=== PATIENT | female | born 1995 | race Caucasian/White ===

== ENCOUNTER 2020-05-12 17:04 | Outpatient (REF) | payer MEDICAID, SELFPAY | END 2020-05-12 17:05 | disposition home or self-care (01) | LOC: HO.LAB 17:04 | PROVIDERS: Visit Provider Internal Medicine | DX: Z20.828 Contact with and (suspected) exposure to other viral communicable diseases (principal) | CPT/HCPCS: C9803; U0003 ==

== ENCOUNTER 2020-09-18 21:09 | Emergency (ER) | payer MEDICAID, SELFPAY ==
[2020-09-18 21:34] VITALS: BP 117/83; PULSE 76; RESP 16; TEMP 37; O2SAT 98; BMI 37.4
[2020-09-18] MEDS: Fluorescein Sodium STRIP 1 STRIP EYE-RIGHT (22:13)
[2020-09-18] MEDS: Tetracaine HCl/PF 0.5% Oph Sol 4 ML DROPS 3 DROP EYE-RIGHT (22:13)
--- NOTE | 2020-09-18 22:15 | PC.NURSE ---
PT HER FOR REDNESS AND SWELLING RIGHT EYE. PT ALSO HAS ALLERGY SYMPTOMS X 1 MONTH. TAKING OTC MEDS. VISUAL ACUITY DONE. WAITING FOR PROVIDER TO STAIN AND EXAMINE RIGHT EYE.
--- NOTE | 2020-09-18 22:30 | ED_ITS ---
HPI - General Adult General Chief complaint: General Medical Stated complaint: allergies Time Seen by Provider: 09/18/20 21:59 Source: patient Mode of arrival: ambulatory History of Present Illness HPI narrative: 25-year-old female with no significant past medical history presenting to the ED complaining of right eye irritation, pruritus, erythema, and clear drainage times today. Also reports nasal congestion. Has been taking Zyrtec, Claritin, and OTC eyedrops without relief. Reports blurry vision secondary to watery eyes. Denies visual loss, nausea/vomiting, fever, foreign body, eye trauma, headache Onset (ago): hour(s) Related Data Previous Rx's Medication Instructions Recorded olopatadine 1 drp OPHTHALMIC (EYE) BID 7 Days 09/18/20 #5 ml Allergies Allergy/AdvReac Type Severity Reaction Status Date / Time No Known Allergies Allergy Verified 09/18/20 21:33 [No Known Allergies*] seasonal Allergy Unknown Itchy Eyes Uncoded 09/18/20 21:33 Review of Systems Review of Systems: Constitutional: No Fever, No Chills ENT/Mouth: No Ear Pain, No Nasal Congestion, No Sinus Pain, No sore throat, No Swallowing Difficulty Eyes: +Eye Pain, + Swelling, + Redness, No Foreign Body, + Discharge, + Vision Changes Cardiovascular: No Chest Pain, No SOB Respiratory: No Cough, No Dyspnea Gastrointestinal: No Nausea, No Vomiting, No Abdominal pain Musculoskeletal: No joint pain, No Myalgias Skin: No Skin Lesions, No rash Neuro: No Weakness, No Numbness, No Headache Yes all other systems are reviewed and are negative [facility] Past Medical History Attestation statement: The following information was validated with the patient. Medical History (Updated 09/18/20 @ 22:38 by WILLIS Magana) No known health problems Social History Social History Advance Directives: No Advance Directives Information Provided: Yes Physical Exam Vital Signs: Vital Signs: Last Vital Signs Temp 98.6 F 09/18/20 21:34 Pulse 76 09/18/20 21:34 Resp 16 09/18/20 21:34 BP 117/83 09/18/20 21:34 Pulse Ox 98 09/18/20 21:34 Body Mass Index 37.4 Const: General: cooperative, healthy appearing, comfortable and no acute distress Orientation/consciousness: patient oriented x3 Limitations: no limitations HENMT: Head: Yes normal to inspection Ears: hearing grossly normal bilaterally General nose exam: Normal external nose present Face and sinus: Yes normal facial exam Eyes: Other: * Visual acuity 20/40 left eye 20/70 right eye. IOP in right eye 9, 10, 9 General: appearance normal, both eyes and all related structures Eyelids: Yes other (Mild right upper eyelid swelling/erythema/irritation) Conjunctivae: conjunctival abnormal right conjunctival chemosis, conjunctival injection and discharge (clear) Sclerae: sclerae normal Corneas: fluorescein used; normal corneas Pupils: Equal, round and reactive pupils present EOM: EOMs intact bilaterally Direct Ophthalmoscopy: no photophobia Neck: Neck: Yes normal visual inspection and Yes no meningeal signs Resp: Effort & Inspection: normal respiratory effort Cardio: Rate: regular rate Skin: Rashes: no rashes Wounds: no wounds Neuro: General: patient oriented x3 and no meningeal signs Cranial nerves: Yes Equal, round and reactive pupils present Gait exam (Neuro): Normal gait present Extrem: General: Yes normal to inspection Medical Decision Making MDM Narrative Medical decision making narrative: On exam VSS, NAD/well-appearing, physical exam as above. Fluorescein stain used in right eye without uptake. IOP's wnl Exam/history consistent with allergic/viral conjunctivitis Discharge Plan Discharge Clinical Impression: Allergic conjunctivitis Qualifiers: Laterality: right Qualified Code(s): H10.11 - Acute atopic conjunctivitis, right eye Patient Disposition: Home, Self-Care Instructions: Conjunctivitis (ED) Additional Instructions: You allergic conjunctivitis, Patanol eyedrops will help with her symptoms It is important for you to follow-up with her primary care doctor as well as an equipment specialist If her symptoms persist or worsen, you develop any visual change/loss, return to the ED Prescriptions: New olopatadine 0.1 % drops 1 drp ophthalmic (eye) BID 7 Days Qty: 5 RF: 0 Referrals: Awais Robles [Physician] - 2 days
== END 2020-09-18 22:58 | disposition home or self-care (01) ==
PROVIDERS: Emergency Provider Emergency Medicine
DX: H10.11 Acute atopic conjunctivitis, right eye (principal); Z79.899 Other long term (current) drug therapy
CPT/HCPCS: 99284

== ENCOUNTER 2022-03-02 11:08 | Outpatient (REF) | payer MEDICAID, SELFPAY ==
[2022-03-02 14:25] LABS: CT PCR NOT DETECTED (Not Detect.); NG PCR NOT DETECTED (Not Detect.)
[2022-03-03 09:45] LABS: BV Int Neg Control Negative (Negative); BV Int Pos Control Positive (Positive)
[2022-03-04 21:43] LABS: HPV mRNA E6/E7 rflx Not Detected (Not Detected)
== END 2022-03-02 11:09 | disposition home or self-care (01) ==
LOC: HO.LNP 11:08
PROVIDERS: Visit Provider Advanced Practice Midwife
DX: Z01.419 Encounter for gynecological examination (general) (routine) without abnormal findings (principal); Z11.51 Encounter for screening for human papillomavirus (HPV)
CPT/HCPCS: 87480; 87491; 87510; 87591; 87624; 87660; 88142

== ENCOUNTER 2022-04-24 12:27 | Emergency (ER) | payer MEDICAID, SELFPAY ==
--- NOTE | ~2022-04-24 | XR_ITS ---
EXAMINATION: XR CHEST CLINICAL INFORMATION: Chest pain. Rule out pneumonia or pneumothorax. COMPARISON: Previous chest x-ray and CTA October 2017 TECHNIQUE: 2 views of the chest were obtained. FINDINGS: No significant abnormality is noted involving the heart, lungs, mediastinum, bony thorax or soft tissues. XR/XR chest 2V IMPRESSION: Unremarkable examination.
--- NOTE | 2022-04-24 12:30 | PC.NURSE ---
patient a/ox4 . pearrla . heart rate regular at 90 beats per minute . breathing even and labored, lungs clear throughout . patient tearful c/o of 10 out of 10 chest pain . skin pink warm and dry . abdomen soft and dry .positive bowel sounds . in all four quadrants . IV placed in right a.c . labs sent . ekg done . patient on hospital monitor .
--- NOTE | 2022-04-24 12:31 | ECG_ITS ---
Test Reason : CHESTPAIN Blood Pressure : / mmHG Vent. Rate : 075 BPM Atrial Rate : 075 BPM P-R Int : 150 ms QRS Dur : 096 ms QT Int : 386 ms P-R-T Axes : 035 074 043 degrees QTc Int : 431 ms Normal sinus rhythm Normal ECG When compared with ECG of 05-NOV-2017 00:16, Vent. rate has decreased BY 44 BPM T wave inversion no longer evident in Inferior leads T wave inversion less evident in Anterolateral leads Referred By: [facility] Electronically Signed By:HAMIDA SIERRA
[2022-04-24 12:47] VITALS: BP 114/83; PULSE 89; RESP 18; TEMP 36.8; O2SAT 100; BMI 36.3
--- NOTE | 2022-04-24 13:00 | ED.CHESTPAIN ---
HPI - Chest Pain General Chief Complaint: Chest Pain Stated Complaint: CP Time Seen by Provider: 04/24/22 12:38 Source: patient Mode of arrival: ambulatory Limitations: no limitations History of Present Illness HPI narrative: 26-year-old female who presents emergency department for evaluation of sudden onset of chest pain. She states that around 12:40 hours she was cleaning her house and also working with 1 of her children on homework when she had a sudden onset chest pain. She states this is her 1st episode of this type of chest pain pain is located in her sternum and left chest. She states that the pain is a constant burning sensation which is worse with breathing. The pain is 10/10. She states she feels short of breath. She denied lightheadedness, dizziness, radiation of the pain to her neck, jaw, arms or back. She denied being ill in any way prior to the onset of her pain. She denied fever, chills, rhinorrhea, sore throat, cough, abdominal pain, pain in her lower extremities or swelling. She states that she was under stress prior to the onset of the symptoms. Related Data Home Medications Medication Instructions Recorded Confirmed escitalopram oxalate 10 mg tablet 10 mg PO QAM depressive disorder 03/02/22 03/02/22 lamotrigine 25 mg tablet 75 mg PO DAILY depressive disorder 03/02/22 03/02/22 quetiapine 25 mg tablet 25 - 50 mg PO BEDTIME PRN insomnia 03/02/22 03/02/22 Previous Rx's Medication Instructions Recorded acetaminophen 500 mg tablet 1,000 mg PO Q6H PRN fever or pain 04/24/22 (Tylenol Extra Strength) #20 tabs ibuprofen 600 mg tablet 600 mg PO Q6H PRN pain #30 tabs 04/24/22 lorazepam 1 mg tablet (Ativan) 1 mg PO TID PRN anxiety #10 tabs 04/24/22 Allergies Allergy/AdvReac Type Severity Reaction Status Date / Time No Known Allergies Allergy Verified 03/02/22 10:17 [No Known Allergies*] seasonal Allergy Unknown Itchy Eyes Uncoded 03/02/22 10:17 Review of Systems Review of Systems: Yes all other systems are reviewed and are negative [facility] Past Medical History [facility] Narrative: Social history: She denies tobacco use. She occasionally drinks alcohol. She denies drug use. Medical History Anxiety Depression Mood disorder No known health problems Surgical History Hx of tubal ligation Family History Family History Maternal Aunt Colon cancer Maternal Uncle Colon cancer Social History Social History Alcohol intake: current Alcohol intake frequency: a few times a month Smoked in Last 30 Days: No Advance Directives: No Advance Directives Information Provided: No Patient : No Physical Exam Vital Signs: Vital Signs: Last Vital Signs Temp 98.3 F 04/24/22 12:47 Pulse 89 04/24/22 12:47 Resp 18 04/24/22 12:47 BP 114/83 04/24/22 12:47 Pulse Ox 100 04/24/22 12:47 O2 Del Method 04/24/22 12:47 BMI result Body Mass Index 36.3 Const: Other: Awake, alert, female patient, she appears anxious, she is tearful, she answers all questions appropriately HEENT: Head: Yes normal to inspection, Yes normocephalic and Yes atraumatic Ears: external ears normal General nose exam: Normal external nose present Face and sinus: Yes normal facial exam Mouth: Normal oral and palatal mucosa present Throat: Yes posterior oropharynx normal Eyes: General: appearance normal, both eyes and all related structures Pupils: Equal, round and reactive pupils present Neck: Neck: Yes normal visual inspection, Yes no lymphadenopathy, Yes trachea midline and Yes supple Chest: Other: Moderate sternal and left chest wall tenderness Resp: Effort & Inspection: normal respiratory effort and able to speak in complete sentences Auscultation: clear to auscultation bilaterally Cardio: Rate: regular rate Rhythm: regular rhythm Heart sounds: S1 normal heart sound present, S2 normal heart sound present and no murmurs GI: Inspection: Yes normal to inspection Palpation (GI): Soft to palpation, nontender and no guarding Auscultation: normal bowel sounds : General: Yes no CVA tenderness Back/Spine/Pelvis: Back: no CVA tenderness Skin: General skin exam: no rashes or lesions noted Neuro: Cranial nerves: Yes CN's II-XII intact bilaterally and Yes Equal, round and reactive pupils present Cognition (Neuro): normal cognition Motor exam (neuro): 5/5 motor strength present throughout Extrem: General: Yes normal to inspection Psych: Appearance: grossly normal Speech and movement: Normal speech and movement present Affect: Anxious affect present Attitude: cooperative Thought process: Normal thought process present Thought content: Normal thought content present Course Course Course Narrative: 26-year-old female who presents emergency department for evaluation of sudden onset of left-sided chest pain that occurred while she was cleaning and helping her child with homework. The pain is a burning sensation located on her sternum and left chest area, the pain is 10/10. Vital signs were normal. Patient did appear to be very anxious , she had sternal and left chest wall tenderness her exam was otherwise unremarkable. I ordered a CBC, CMP, PT/INR, PTT, D-dimer, troponin, EKG and chest x-ray. Patient will be treated with Toradol 30 mg IV and Zofran 4 mg IV. I also ordered 1 L of normal saline IV. 1455: Laboratory evaluation: Troponin below detectable limits, D-dimer below detectable limits, CBC and CMP unremarkable. COVID-19 negative Radiology evaluation: Chest x-ray was interpreted as unremarkable by the radiologist. Patient did get improvement with treatment of Toradol. She still is feeling anxious. At this time I suspect the patient's pain is musculoskeletal triggered by her anxiety. Patient was prescribed Tylenol, ibuprofen and Ativan. She was given printed and verbal instructions and discharged home. Medications Administered Discontinued Medications Generic Name Dose Route Start Last Admin Trade Name Freq PRN Reason Stop Dose Admin Sodium Chloride 1,000 mls @ 999 mls/hr 04/24/22 13:00 04/24/22 13:17 Ns IV 04/24/22 14:00 999 mls/hr .Q1H1M STA Administration Ketorolac Tromethamine 30 mg 04/24/22 13:00 04/24/22 13:16 Ketorolac Tromethamine 15 Mg/Ml Vial IVPUSH 04/24/22 13:01 30 mg ONCE STA Administration Ondansetron HCl 4 mg 04/24/22 13:00 04/24/22 13:16 Ondansetron Hcl 4 Mg/2 Ml Vial IVPUSH 04/24/22 13:01 4 mg ONCE ONE Administration Medical Decision Making Medical Decision Making Independent interpretation of EKG, rhythm strip, radiology study: Independent interp EKG,rhythm strip, radiology study I performed an independent interpretation of the: EKG My interpretation is 1239: Normal sinus rhythm rate of 75, normal RI interval, QRS duration and QTC intervals, no ST segment elevation, no ST segment depression, inverted T-waves V1 and V2, no PACs, no PVCs, no Q-waves. This is a normal EKG. Discharge Plan Discharge Clinical Impression: Acute costochondritis, Acute anxiety, Panic attack Patient Disposition: Home, Self-Care Instructions: Costochondritis (ED), Anxiety (ED) Additional Instructions: Your blood work was normal. Your EKG was normal. Your chest x-ray was unremarkable. Your chest pain is caused by inflammation of your chest joints and anxiety. Take ibuprofen 200 mg pills, 3 pills every 6 hours as needed for pain. Take Tylenol (acetaminophen) 500 mg pills, 2 pills every 4 to 6 hours as needed for pain. Take Ativan 1 mg pills, 1 pill every 6 hours as needed for anxiety. This medication will make you sleepy, do not drive or work while taking this medication. This medication can be addicting, if your concerned about addiction you can ask the pharmacist for less medications or do not get the prescription filled. Follow-up with your doctor in 2 days. Please return to the emergency department if your symptoms get worse or if you develop any symptoms that are concerning to you. Prescriptions: New acetaminophen [Tylenol Extra Strength] 500 mg tablet 1,000 mg PO Q6H PRN (Reason: fever or pain) Qty: 20 0RF lorazepam [Ativan] 1 mg tablet 1 mg PO TID PRN (Reason: anxiety) Qty: 10 0RF Rx Instructions: Patient may request partial fill ibuprofen 600 mg tablet 600 mg PO Q6H PRN (Reason: pain) Qty: 30 0RF No Action quetiapine 25 mg tablet 25 - 50 mg PO BEDTIME PRN (Reason: insomnia) lamotrigine 25 mg tablet 75 mg PO DAILY escitalopram oxalate 10 mg tablet 10 mg PO QAM
[2022-04-24] MEDS: ondansetron HCL 4 MG/2 ML VIAL IVPUSH (13:16)
[2022-04-24] MEDS: Ketorolac Tromethamine 15 MG/ML VIAL 30 MG IVPUSH (13:16)
[2022-04-24] MEDS: 0.9 % Sodium Chloride 1,000 ML 999 ML IV (13:17)
[2022-04-24 13:18] LABS: MANUAL DIFF FLAG NO
[2022-04-24 13:20] LABS: Basophils Percent Auto 0.3 % (0-2); Eosinophils Absolute Auto 0.3 X10*3/uL (0.0-0.4); Hematocrit 34.3 % (37.0-47.0); Hemoglobin 11.5 g/dl (12.0-16.0); Imm Gran Abs Auto 0.02 X10*3/uL (0.00-0.03); Imm Gran Pct Auto 0.3 % (0.0-0.4); Lymphocytes Absolute Auto 2.4 X10*3/uL (1.2-4.9); Lymphocytes Percent Auto 38.3 % (20-40); Mean Corpuscular HGB Conc 33.5 g/dl (31.0-35.0); Mean Corpuscular Volume 92.5 fL (80.0-98.0); Monocytes Absolute Auto 0.4 X10*3/uL (0.1-1.2); Monocytes Percent Auto 7.1 % (2-11); Neutrophils Absolute Auto 3.1 x10*3/uL (2.0-8.3); Platelet Count 269 X10*3/uL (160-400); Red Blood Count 3.71 X10*6/uL (4.20-5.50); Red Cell Distribution Width 13.1 % (11.0-16.0); White Blood Count 6.2 X10*3/uL (4.8-10.8)
[2022-04-24 13:25] LABS: Prothrombin Time 11.7 SEC (10.0-13.1)
[2022-04-24 13:28] LABS: Partial Thromboplastin Time 28.3 SEC (26.0-36.4)
[2022-04-24 13:34] LABS: COVID-19 Test Negative (Negative); IDNOW Serial# 16C4AD1C
[2022-04-24 13:45] LABS: D Dimer High Sensitivity < 150 NG/ML
[2022-04-24 13:58] LABS: Alanine Aminotransferase 14 U/L (0-31); Alkaline Phosphatase 61 U/L (39-117); Anion Gap 13 (12-20); Aspartate Amino Transferase 26 U/L (5-31); Bilirubin Total 0.4 mg/dL (0.0-1.0); Blood Urea Nitrogen 9 mg/dL (9-16); Calcium 8.8 mg/dL (8.4-10.2); Carbon Dioxide 23 mmol/L (22-29); Chloride 106 mmol/L (96-108); Creatinine Clr Calc Pharmacy 125.2; Estimated Glomerular Filt Rate > 60; Glucose Random 95 mg/dL (60-115); Potassium 3.5 mmol/L (3.3-5.1); Sodium 138 mmol/L (135-145); Total Protein 6.8 g/dL (6.5-8.0)
[2022-04-24 14:05] LABS: Troponin-I High Sensitivity < 3.5 ng/L (<3.5-17.0)
[2022-04-24 16:02] VITALS: BP 116/87; PULSE 76; RESP 18; O2SAT 98
--- NOTE | 2022-04-24 16:04 | PC.NURSE ---
a/ox4.VSS. went over discharge instructions as ordered by provider . patient has no questions at this time .
== END 2022-04-24 16:06 | disposition home or self-care (01) ==
PROVIDERS: Emergency Provider Emergency Medicine Emergency Medical Services
DX: R07.89 Other chest pain (principal); M94.0 Chondrocostal junction syndrome [Tietze]; F41.1 Generalized anxiety disorder; F43.0 Acute stress reaction; Z79.899 Other long term (current) drug therapy; Z20.822 Contact with and (suspected) exposure to COVID-19
CPT/HCPCS: 36415; 71046; 80053; 84484; 85025; 85379; 85610; 85730; 87635; 93005; 96361; 96374; 96375; 99284; 99285; J1885; J2405

== ENCOUNTER 2022-08-08 09:21 | Emergency (ER) | payer MEDICAID, SELFPAY ==
--- NOTE | ~2022-08-08 | XR_ITS ---
EXAMINATION: XR CHEST CLINICAL INFORMATION: Chest pain. COMPARISON: Most recent chest radiograph dated 04/24/2022. TECHNIQUE: 2 views of the chest were obtained. FINDINGS: The lungs are clear. The cardiomediastinal silhouette is normal in size. There is no pleural effusion or pneumothorax. No acute osseous abnormality. XR/XR chest 2V IMPRESSION: No acute cardiopulmonary findings.
[2022-08-08 09:22] VITALS: BP 128/95; PULSE 65; RESP 16; TEMP 36.8; O2SAT 98; BMI 36.6
--- NOTE | 2022-08-08 09:35 | ED_ITS ---
HPI - General Adult General Chief complaint: Anxiety Stated complaint: chest pain anxiety Time Seen by Provider: 08/08/22 09:32 Source: patient Mode of arrival: ambulatory Limitations: no limitations History of Present Illness HPI narrative: Patient is a 27 year old assigned female at with a history of anxiety presenting to the emergency department today after a panic attack. Patient states that she has a history of panic attacks and had one today that started at 9 this morning. Patient states that she takes a C medication for anxiety, can't remember the name, and isn't sure of the dose. Patient denies any current dizziness, lightheadedness, abdominal pain, nausea, vomiting, fever, chills, blurry vision, double vision, loss of vision, chest pain, difficulty breathing, shortness of breath, back pain, night sweats, pain with urination, increased urinary frequency, increased urinary urgency, blood in her urine or stool, syncope or a near syncopal episode, recent trauma or falls, bowel incontinence, bladder incontinence, bowel retention, bladder retention, or any other complaints at this time. Onset (ago): hour(s) Severity: mild Severity scale (1-10): 2 Relieving factors: none Exacerbating factors: none Associated symptoms: denies other symptoms Treatments prior to arrival: none Related Data Home Medications Medication Instructions Recorded Confirmed escitalopram oxalate 10 mg tablet 10 mg PO QAM depressive disorder 03/02/22 03/02/22 lamotrigine 25 mg tablet 75 mg PO DAILY depressive disorder 03/02/22 03/02/22 quetiapine 25 mg tablet 25 - 50 mg PO BEDTIME PRN insomnia 03/02/22 03/02/22 Previous Rx's Medication Instructions Recorded acetaminophen 500 mg tablet 1,000 mg PO Q6H PRN fever or pain 04/24/22 (Tylenol Extra Strength) #20 tabs ibuprofen 600 mg tablet 600 mg PO Q6H PRN pain #30 tabs 04/24/22 lorazepam 1 mg tablet (Ativan) 1 mg PO TID PRN anxiety #10 tabs 04/24/22 Allergies Allergy/AdvReac Type Severity Reaction Status Date / Time No Known Allergies Allergy Verified 03/02/22 10:17 [No Known Allergies*] seasonal Allergy Unknown Itchy Eyes Uncoded 03/02/22 10:17 Review of Systems Constitutional: Constitutional: Reports no additional constitutional c omplaints, Denies chills, Denies fever(s) and Denies night sweats Eyes: Eyes: Reports no additional eye complaints, Denies blurry vision, Denies change in vision, Denies diplopia, Denies eye discharge, Denies loss of vision and Denies eye pain ENT: Denies dizziness Cardiovascular: Cardiovascular: Reports no additional cardiovascular complaints, Denies chest pain, Denies lightheadedness, Denies Loss of Consciousness and Denies dyspnea Respiratory: Respiratory: Reports no additional respiratory complaints and Denies dyspnea Gastrointestinal: Gastrointestinal: Reports no additional gastrointestinal complaints, Denies abdominal pain, Denies melena, Denies hematochezia, Denies change in bowel habits and Denies change in stool character Genitourinary: Genitourinary: Denies hematuria, Denies urinary frequency, Denies dysuria, Denies urinary incontinence, Denies urinary hesitancy and Denies urinary urgency Musculoskeletal: Musculoskeletal: Reports no additional musculoskeletal complaints, Denies numbness and Denies tingling Neurologic: Denies dizziness, Denies loss of vision, Denies numbness and Denies tingling Psychiatric: Psychiatric: Reports no additional psychiatric complaints, Reports anxiety and Reports panic attacks Endocrine: Endocrine: Reports no additional endocrine complaints Hematologic/Lymphatic: Hematologic/Lymphatic: Reports no additional hematologic/lymphatic complaints Allergic/Immunologic: Allergic/Immunologic: Reports no additional allergic/immunologic complaints [facility] Past Medical History Attestation statement: The following information was validated with the patient. Source: old records reviewed and nursing notes reviewed Medical History Anxiety Depression Mood disorder No known health problems Surgical History Hx of tubal ligation Family History Family History Maternal Aunt Colon cancer Maternal Uncle Colon cancer Social History Social History Alcohol intake: current Alcohol intake frequency: a few times a month Advance Directives: No Advance Directives Information Provided: No Patient : No Physical Exam ED Vital Signs: Vital Signs - 24 hr 08/08/22 09:22 Temperature 98.3 F Pulse Rate 65 Respiratory Rate 16 Blood Pressure 128/95 H Pulse Oximetry 98 Oxygen Delivery Method Room Air BMI result Body Mass Index 36.6 Const General: cooperative, no acute distress, alert and awake Nutritional Appearance: well nourished Orientation/consciousness: patient oriented x3 Limitations: no limitations HENMT Head: Yes normal to inspection and Yes atraumatic Ears: hearing grossly normal bilaterally and external ears normal General nose exam: Normal external nose present, no nasal discharge noted and no epistaxis Face and sinus: Yes normal facial exam, No abrasion and No laceration Mouth: Normal oral and palatal mucosa present, no drooling and no muffled voice Eyes General: appearance normal, both eyes and all related structures Periorbital: periorbital findings normal Eyelids: Yes eyelids normal Conjunctivae: conjunctivae normal Pupils: Equal, round and reactive pupils present EOM: EOMs intact bilaterally Neck Neck: Yes normal visual inspection, Yes full ROM and Yes no lymphadenopathy Chest Chest palpation & inspection: normal inspection of the chest Resp Effort & Inspection: normal respiratory effort and able to speak in complete sentences Auscultation: clear to auscultation bilaterally Cardio Rate: regular rate Rhythm: regular rhythm GI Inspection: Yes normal to inspection Palpation (GI): Soft to palpation, not firm, nontender and no guarding Neuro General: patient oriented x3 and moves all extremities Cranial nerves: Yes Equal, round and reactive pupils present Cognition (Neuro): normal cognition Motor exam (neuro): 5/5 motor strength present throughout Sensory Exam: Normal double simultaneous stimulation for sensation Coordination: [id number] test normal Extrem General: Yes normal to inspection, Yes full ROM and Yes capillary refill normal Psych Appearance: grossly normal Mental Status: mental status grossly normal Affect: normal affect Attitude: cooperative Thought process: Normal thought process present Thought content: Normal thought content present Insight: Good insight present (Psych) Medications Administered Discontinued Medications Generic Name Dose Route Start Last Admin Trade Name Freq PRN Reason Stop Dose Admin Lorazepam 1 mg 08/08/22 10:11 08/08/22 10:19 Lorazepam 1 Mg Tablet PO 08/08/22 10:12 1 mg ONCE ONE Administration Medical Decision Making Medical Decision Making [facility] Narrative: Patient is a 27 year old assigned female at with a history of anxiety presenting to the emergency department today after an anxiety attack. Patient's physical exam was unremarkable. Patient's EKG was unremarkable. Patient's chest x-ray showed no acute process. I explained my physical exam findings as well as all test results to the patient. I answered all questions asked by the patient. Patient received PO Ativan which she stated helped her symptoms significantly. I stressed the importance of the patient taking her medication as prescribed. I stressed the importance of the patient following up with her primary care provider and a psychiatrist. I stressed the importance of the patient returning to the emergency department immediately if her symptoms were to worsen or if she were to develop any dizziness, shortness of breath, difficulty breathing, chest pain, blurry vision, loss of vision, nausea, vomiting, abdominal pain, fever, chills, back pain, or any other complaints. Patient verbalized agreement and understanding with this treatment plan and discharge. Differential Diagnosis Differential Diagnoses: The differential diagnosis associated with the presentation includes anxiety, panic attack Independent Interpretation I performed an independent interpretation of an: EKG Interpretation: Vent. Rate: 056 BPM ? ? Atrial Rate: 056 BPM P-R Int: 168 ms? QRS Dur: 096 ms QT Int: 408 ms ? ? ? P-R-T Axes: 054 067 031 degrees QTc Int: 393 ms ? Sinus bradycardia with sinus arrhythmia Otherwise normal ECG When compared with ECG of 24-APR-2022 12:39, No significant change was found DD/ 1023 Radiology Impression Radiologist Impression: My interpretation is in agreement with the radiologist's impression of this imaging study. EXAMINATION: XR CHEST CLINICAL INFORMATION: Chest pain. COMPARISON: Most recent chest radiograph dated 04/24/2022. TECHNIQUE: 2 views of the chest were obtained. FINDINGS: The lungs are clear. The cardiomediastinal silhouette is normal in size. There is no pleural effusion or pneumothorax. No acute osseous abnormality. XR/XR chest 2V IMPRESSION: No acute cardiopulmonary findings. Dictated By: Sammy Griffin MD Signed By: Electronically signed by Sammy Griffin MD 08/08/22 1129 Discharge Plan Discharge Clinical Impression: Acute anxiety Patient Disposition: Home, Self-Care Instructions: Anxiety (ED) Additional Instructions: Follow up with your primary care provider and a [facility] psychiatrist. Return to the emergency department immediately if your symptoms worsen or if you develop any dizziness, shortness of breath, difficulty breathing, chest pain, blurry vision, loss of vision, nausea, vomiting, abdominal pain, fever, chills, back pain, or any other complaints. [facility] ([facility]) at [facility]: [address] [place] [id number] Open from 10am - 12pm [facility] Crisis Services: [address] [place] [address] Open 05/12 Behavioral health Network: [address] [place] [address] [address] [place] [id number] Hours: M-F 8am to 8pm Monday and Monday 9am to 5pm Prescriptions: No Action acetaminophen [Tylenol Extra Strength] 500 mg tablet 1,000 mg PO Q6H PRN (Reason: fever or pain) Qty: 20 0RF lorazepam [Ativan] 1 mg tablet 1 mg PO TID PRN (Reason: anxiety) Qty: 10 0RF Rx Instructions: Patient may request partial fill ibuprofen 600 mg tablet 600 mg PO Q6H PRN (Reason: pain) Qty: 30 0RF quetiapine 25 mg tablet 25 - 50 mg PO BEDTIME PRN (Reason: insomnia) lamotrigine 25 mg tablet 75 mg PO DAILY escitalopram oxalate 10 mg tablet 10 mg PO QAM Referrals: [facility] [Primary Care Provider] - Stand Alone Forms: Work/School Release Interventions: ED Discharge Assessment Last Done: 08/08/22 12:02 Discharge Date/Time: 08/08/22 12:03 Print Language: Turkmen
--- NOTE | 2022-08-08 10:11 | ECG_ITS ---
Test Reason : CHEST PAIN Blood Pressure : / mmHG Vent. Rate : 056 BPM Atrial Rate : 056 BPM P-R Int : 168 ms QRS Dur : 096 ms QT Int : 408 ms P-R-T Axes : 054 067 031 degrees QTc Int : 393 ms Sinus bradycardia with sinus arrhythmia Otherwise normal ECG When compared with ECG of 24-APR-2022 12:39, No significant change was found Referred By: Charissa Ponce Electronically Signed By:HAMIDA SIERRA
[2022-08-08] MEDS: LORazepam 1 MG TABLET PO (10:19)
== END 2022-08-08 12:03 | disposition home or self-care (01) ==
PROVIDERS: Emergency Provider Student in an Organized Health Care Education/Training Program
DX: R07.89 Other chest pain (principal); F41.1 Generalized anxiety disorder; F43.0 Acute stress reaction
CPT/HCPCS: 71046; 93005; 99283; 99284

== ENCOUNTER 2022-08-16 06:02 | Emergency (ER) | payer MEDICAID, SELFPAY ==
[2022-08-16 06:08] VITALS: BP 115/73; PULSE 57; RESP 16; TEMP 37; O2SAT 99; BMI 37.8
[2022-08-16 06:19] VITALS: BP 115/73; PULSE 57; RESP 16; TEMP 37; O2SAT 99
[2022-08-16 06:53] VITALS: BP 125/80; PULSE 54; RESP 17; TEMP 37.3
--- NOTE | 2022-08-16 06:59 | PC.NURSE ---
Resumed care of this patient, she is currently resting quietly in bed, reporting 10/10 pain in L Jaw. stating she has not been able to eat or drink. Waiting on provider to see her at this time, all other needs met at this time.
--- NOTE | 2022-08-16 07:06 | ED.GENADULT ---
HPI - General Adult General Chief complaint: General Medical Stated complaint: Leftside Mouth Pain hurts when talking Time Seen by Provider: 08/16/22 07:05 Source: patient Mode of arrival: ambulatory Limitations: no limitations History of Present Illness HPI narrative: 27-year-old female who presents emergency department for evaluation of dental pain and left-sided facial swelling. She states that her symptoms started 3 days prior. She states that her pain is become more severe base more swollen. She points to 2 teeth in her left lower jaw ( #20 and #21) when asked to localize the pain. The pain is a constant, dull ache which is 10/10. Patient states that the left side of her face is become more swollen and is tender to palpation. She denied fever, chills, sore throat, nausea, vomiting. She states she is feeling tired and fatigued. Patient contacted her dentist but cannot get appointment until September 2022 therefore she came to the emergency department for evaluation. Related Data Home Medications Medication Instructions Recorded Confirmed escitalopram oxalate 10 mg tablet 10 mg PO QAM depressive disorder 03/02/22 03/02/22 lamotrigine 25 mg tablet 75 mg PO DAILY depressive disorder 03/02/22 03/02/22 quetiapine 25 mg tablet 25 - 50 mg PO BEDTIME PRN insomnia 03/02/22 03/02/22 Previous Rx's Medication Instructions Recorded acetaminophen 500 mg tablet 1,000 mg PO Q6H PRN fever or pain 04/24/22 (Tylenol Extra Strength) #20 tabs ibuprofen 600 mg tablet 600 mg PO Q6H PRN pain #30 tabs 04/24/22 lorazepam 1 mg tablet (Ativan) 1 mg PO TID PRN anxiety #10 tabs 04/24/22 amoxicillin 500 mg capsule 1,000 mg PO TID 7 days #42 caps 08/16/22 morphine 15 mg immediate release 15 mg PO Q4-6H PRN pain #10 tabs 08/16/22 tablet Allergies Allergy/AdvReac Type Severity Reaction Status Date / Time No Known Allergies Allergy Verified 03/02/22 10:17 [No Known Allergies*] seasonal Allergy Unknown Itchy Eyes Uncoded 03/02/22 10:17 Review of Systems Review of Systems: Yes all other systems are reviewed and are negative PMFSH Past Medical History [facility] Narrative: Past medical history: None. Social history: She denies tobacco, alcohol and drug use. Medical History Anxiety Depression Mood disorder No known health problems Surgical History Hx of tubal ligation Family History Family History Maternal Aunt Colon cancer Maternal Uncle Colon cancer Social History Social History Alcohol intake: never Smoked in Last 30 Days: No Use of substances other than those prescribed or required for medical reasons: No Advance Directives: No Advance Directives Information Provided: Yes Physical Exam ED Vital Signs: Vital Signs - 24 hr 08/16/22 06:08 08/16/22 06:19 08/16/22 06:53 Temperature 98.6 F 98.6 F 99.2 F Pulse Rate 57 57 54 Respiratory Rate 16 16 17 Blood Pressure 115/73 115/73 125/80 Pulse Oximetry 99 99 Oxygen Delivery Method Room Air Room Air BMI result Body Mass Index 37.8 Const Other: Awake, alert, female patient, very pleasant cooperative, appears to be in moderate distress secondary to her face pain. Patient does have obvious asymmetric swelling of the left face compared to the right HENMT Other: Patient has left facial swelling with tenderness palpation of the lower mandible, there is no increased warmth or erythema noted, there is no flocculence or induration of her skin. Ears: external ears normal General nose exam: Normal external nose present Face and sinus: Yes other Mouth: Normal oral and palatal mucosa present Teeth image: 1. Large filling, tender to palpation, tender gingiva, no abscess 2. Large filling, tender palpation, tender gingiva, no abscess Throat: Yes posterior oropharynx normal Eyes General: appearance normal, both eyes and all related structures Neck Neck: Yes normal visual inspection, Yes no lymphadenopathy and Yes supple Medical Decision Making Medical Decision Making MDM Narrative: 27-year-old female who presents emergency department for evaluation of 3 days of lower jaw dental pain with left-sided facial swelling. Patient's presentation is consistent with a dental infection/dental abscess. Patient was started on amoxicillin 1000 mg 3 times a day for 7 days. She was advised to take ibuprofen and Tylenol for pain and for pain not relieved by these medications she was prescribed morphine. Her pain was 10 of 10 emergency department she was treated with Toradol 60 mg IM. She was given printed and verbal instructions and discharged home. She was given a work note and advised to follow-up with her dentist for re-evaluation. Differential Diagnosis Differential diagnosis includes was not limited to dental infection, dental abscess, sinusitis Discharge Plan Discharge Clinical Impression: Abscess, dental, Left facial swelling Patient Disposition: Home, Self-Care Instructions: Dental Abscess (ED) Additional Instructions: You have 2 tender teeth (tooth #20,#21). These teeth have large feelings in them Given the swelling in your face, these teeth are infected therefore I am starting you on an antibiotic, amoxicillin 1000 mg 3 times a day for 7 days Take ibuprofen 200 mg pills, 2pills every 6 hours as needed for pain. Take Tylenol (acetaminophen) 2 pills every 6 hours as needed for pain. For pain not relieved by ibuprofen or Tylenol take morphine 15 mg pills, 1 pill every 4 hours as needed for pain. This medication will make you sleepy, do not drive or work while taking this medication. Morphine is a narcotic medication and can be addicting. If you are concerned about addiction you can ask the pharmacist for less pills or do not get this prescription filled. Follow-up with your dentist in 7 days. Please return to the emergency department if your symptoms get worse or if you develop any symptoms that are concerning to you. Please see work note. Prescriptions: New amoxicillin 500 mg capsule 1,000 mg PO TID 7 Days Qty: 42 0RF morphine 15 mg tablet 15 mg PO Q4-6H PRN (Reason: pain) Qty: 10 0RF Rx Instructions: The patient may ask for partial fill; Partial Fill upon patient request. No Action acetaminophen [Tylenol Extra Strength] 500 mg tablet 1,000 mg PO Q6H PRN (Reason: fever or pain) Qty: 20 0RF lorazepam [Ativan] 1 mg tablet 1 mg PO TID PRN (Reason: anxiety) Qty: 10 0RF Rx Instructions: Patient may request partial fill ibuprofen 600 mg tablet 600 mg PO Q6H PRN (Reason: pain) Qty: 30 0RF quetiapine 25 mg tablet 25 - 50 mg PO BEDTIME PRN (Reason: insomnia) lamotrigine 25 mg tablet 75 mg PO DAILY escitalopram oxalate 10 mg tablet 10 mg PO QAM Stand Alone Forms: Work/School Release
[2022-08-16] MEDS: Ketorolac Tromethamine 60 MG/2 ML VIAL IM (07:16)
== END 2022-08-16 07:27 | disposition home or self-care (01) ==
PROVIDERS: Emergency Provider Emergency Medicine Emergency Medical Services
DX: K04.7 Periapical abscess without sinus (principal); R22.0 Localized swelling, mass and lump, head; K08.89 Other specified disorders of teeth and supporting structures
CPT/HCPCS: 96372; 99284; J1885

== ENCOUNTER 2022-12-19 15:18 | Outpatient (REF) | payer MEDICAID, SELFPAY ==
--- NOTE | ~2022-12-19 | XR_ITS ---
EXAMINATION: XR WRIST, RIGHT CLINICAL INFORMATION: Ulnar-sided pain status-post fall 3 days prior. COMPARISON: None available. TECHNIQUE: PA, lateral, and oblique views of the right wrist. FINDINGS: The bones and soft tissues are normal. No fracture or dislocation is seen. An orthopedic plate and screws are applied to the fifth metacarpal. Alignment is anatomic with normal joint spaces. There is a mild ulnar minus variance. No erosions or abnormal soft tissue calcifications. XR/XR wrist RT w scaphoid IMPRESSION: An orthopedic plate and screws are applied to the right fifth metacarpal. Otherwise, unremarkable right wrist.
== END 2022-12-19 15:19 | disposition home or self-care (01) ==
LOC: HO.HHCX 15:18
PROVIDERS: Visit Provider Internal Medicine
DX: M25.531 Pain in right wrist (principal)
CPT/HCPCS: 73110

== ENCOUNTER 2023-01-05 09:15 | Outpatient (AMB) | payer MEDICAID, SELFPAY ==
[2023-01-05 09:20] VITALS: BMI 37.8
--- NOTE | 2023-01-05 09:20 | A.OFFVIS_ITS ---
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 States on 12/17/22, she made a bad move while removing her bra. Hx of boxers fracture from about 10 years ago. States pain is mainly by her lateral aspect of wrist. Describes it throbs and feels like a bruised when touching wrist. No injury she can recall. Denies numbness, tingling, locking of finger or prior treatment. Allergies No Known Allergies [No Known Allergies*] Allergy (Verified 01/05/23 09:27) seasonal Allergy (Unknown, Uncoded 01/05/23 09:27) Itchy Eyes Medication List - Last Reconciled 01/05/23 by Azalea Guadarrama MD acetaminophen (Tylenol Extra Strength) 1,000 mg (2 x 500 mg) PO Q6H PRN ibuprofen 600 mg PO Q6H PRN lamotrigine 75 mg PO DAILY HPI HPI Comments History of Present Illness Details History of 5th metatarsal fracture s/p internal fixation 10 years ago. Did OK after. Incident happened 12/17/22. Pain on right ulnar wrist. Xray did not show new fracture. Denies numbness Harder to move wrist due to pain. Treatment done so far: NSAIDs - Motrin, no relief. Tylenol also. therapy - none Referred by PCP. [facility] Medical History Anxiety Depression Mood disorder No known health problems Surgical History Hx of tubal ligation Family History Maternal Aunt Colon cancer Maternal Uncle Colon cancer Social History (Updated 01/05/23 @ 09:28 [address] 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 MSK: Inspection reveals appropriate head and neck positioning. No pain with palpation over the neck musculature. Cervical ROM was full. Spurling's sign negative. Bilateral shoulder ROM WNL. No ligamentous laxity or crepitance. No increased effusion. Hawkin's test is negative. No joint effusion noted. No deformity noted. No intrinsic hand weakness noted. No atrophy noted. Betsy test negative. Carpal compression test negative. Tinel sign negative. Tenderness is over soft tissue along right metatarsal. No bony tenderness. Strength is 5/5 in all muscle groups tested. No increased tone noted. Neurological: Neurologic examination of the upper and lower extremities was nonfocal with intact sensation, muscle stretch reflexes and without focal motor deficits . Carmona?s negative bilaterally. Gait is non-antalgic without loss of balance. Results Reviewed Results Reviewed: I independently reviewed the results of the following: Recent right wrist x-ray did not show any fracture. XR/XR wrist RT w scaphoid IMPRESSION: An orthopedic plate and screws are applied to the right fifth metacarpal. Otherwise, unremarkable right wrist. Assessment & Plan Assessment & Plan (1) Flexor carpi ulnaris tendinitis: Code(s): M77.8 - Other enthesopathies, not elsewhere classified Plan Soft tissue tenderness without bony abnormality. Advice relative rest and ice. We will provide wrist splint today. Referring her to hand therapy. No indication for repeat x-ray. Recent x-ray did not show any fracture. Previous metal plate in place. Assessment and plan discussed with patent, and patient was agreeable. All questions were answered thoroughly. Follow-up in 3 months. Call sooner if any problems. Orders: Orders OT Evaluation and Treatment Today M77.8 - Other enthesopathies, not elsewhere classified Coding Level of Care Code New Pt Level 3 (00477) Diagnoses Flexor carpi ulnaris tendinitis M77.8
== END 2023-01-05 09:45 | disposition home or self-care (01) ==
PROVIDERS: Visit Provider Physical Medicine & Rehabilitation
DX: M77.8 Other enthesopathies, not elsewhere classified (principal)
CPT/HCPCS: 99203

== ENCOUNTER → 2023-01-05 09:15 | Outpatient (BNVA) | payer MEDICAID, SELFPAY | PROVIDERS: Visit Provider Physical Medicine & Rehabilitation | DX: M25.531 Pain in right wrist (principal); M77.8 Other enthesopathies, not elsewhere classified | CPT/HCPCS: 99202 ==

== ENCOUNTER 2023-01-13 23:30 | Emergency (ER) | payer MEDICAID, SELFPAY ==
--- NOTE | ~2023-01-13 | XR_ITS ---
EXAMINATION: XR TIBIA AND FIBULA, RIGHT CLINICAL INFORMATION: Pain. Difficulty walking. Trauma. COMPARISON: None available. TECHNIQUE: AP and lateral views of the right tibia and fibula were obtained. FINDINGS: The bones and soft tissues are normal. No fracture. No osseous lesions. XR/XR tibia fibula RT 2V IMPRESSION: Normal right tibia and fibula.
[2023-01-13 23:34] VITALS: BP 123/84; PULSE 75; RESP 18; TEMP 36.8; O2SAT 96; BMI 21.3
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
== END 2023-01-14 01:10 | disposition home or self-care (01) ==
PROVIDERS: Emergency Provider Emergency Medicine
DX: S80.11XA Contusion of right lower leg, initial encounter (principal); S60.410A Abrasion of right index finger, initial encounter; M79.604 Pain in right leg; Y04.8XXA Assault by other bodily force, initial encounter; Y93.9 Activity, unspecified; Y92.9 Unspecified place or not applicable; Y99.9 Unspecified external cause status; Z79.899 Other long term (current) drug therapy
CPT/HCPCS: 73590; 99282; 99283

== ENCOUNTER 2023-05-03 14:23 | Outpatient (REF) | payer MEDICAID, SELFPAY ==
[2023-05-06 15:38] LABS: TS Negative Control Passed; TS Panel A 0; TS Panel B 0; TS Positive Control Passed; TSpotTB Negative (Negative)
== END 2023-05-03 14:24 | disposition home or self-care (01) ==
LOC: HO.HHCL 14:23
PROVIDERS: Visit Provider Student in an Organized Health Care Education/Training Program
DX: Z11.1 Encounter for screening for respiratory tuberculosis (principal)
CPT/HCPCS: 36415; 86481

== ENCOUNTER 2023-05-12 14:56 | Outpatient (AMB) | payer MEDICAID, SELFPAY ==
[2023-05-12 14:58] VITALS: BMI 38.6
--- NOTE | 2023-05-12 14:58 | A.OFFVIS_ITS ---
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: No Information Interpreted: non-clinical & clinical Town Marshal: Town Marshal Present (Carlyn) Allergies No Known Allergies [No Known Allergies*] Allergy (Verified 05/12/23 15:00) seasonal Allergy (Unknown, Uncoded 05/12/23 15:00) Itchy Eyes Medication List - Last Reconciled 05/12/23 by Christine Alvarado CNM acetaminophen (Tylenol Extra Strength) 1,000 mg (2 x 500 mg) PO Q6H PRN [id number] 250-250-65 mg (Excedrin Migraine) 2 tabs PO Q6H PRN ibuprofen 600 mg PO Q6H PRN Is last menstrual period known: No Post menopausal: No HPI 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 She has no particular worries about infection but she would like testing done including blood work. On questioning about health and weight issues she will be meeting a new primary care provider on the of next month here at the [facility]. 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 If she had more time or worked different hours perhaps she could exercise while the children were still in early childhood education specialist at the [facility] [employer]. Her son is a little overweight so she is seeing a sample wrapper for him and she is trying to learn little things about nutrition and has already cut out sweet drinks and soda and a lot of snacks and sugar in the house. 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 Female Reproductive History Menstrual Age of Menarche: 7 Duration of menses: 6-7 days control method: other (tubal ligation) Total pregnancies: 4 Full term: 3 Number of Living Children: 3 Ab spontaneous: 1 Date of last pap smear: 05/02/22 (negative) History of abnormal pap smear: Yes (2019 ASCUS) Physical Exam Vital Signs: BMI result Body Mass Index 38.6 Const General: healthy appearing, comfortable, no acute distress, well developed and alert Nutritional Appearance: average body habitus Orientation/consciousness: patient oriented x3 Limitations: no limitations HEENT Head: Yes normocephalic Neck Neck: Yes normal visual inspection Chest Chest palpation & inspection: normal inspection of the chest Breast/axilla inspection: normal inspection of the breasts and normal inspection of the axillae Breast/axilla palpation: normal palpation of the breasts and normal palpation of the axillae Resp Effort & Inspection: normal respiratory effort GI Inspection: Yes normal to inspection, No Abdominal wall edema and No distended Palpation (GI): Soft to palpation and nontender Other: Speculum exam slightly challenging secondary to adipose and muscle tone. Vagina pink moist no lesions no worrisome discharge the discharge was white and clear and abundant which is more consistent with midcycle ovulatory mucus than anything else her last intercourse was 3 days before. Cervix pink multiparous deep in vaginal vault and slightly difficult to see but nontender mobile nontender uterus small midposition mobile nontender adnexa nontender very good tone with Kegel. General: Yes bladder normal to palpation External Female Exam: normal external appearance and normal appearance of the urethra Speculum Exam - Vagina: normal appearance of the vagina, normal palpation and normal vaginal discharge Speculum Exam - Cervix: normal appearance of the cervix, normal palpation and nontender Bimanual exam- vagina & uterus: normal bimanual exam, normal palpation, uterine size normal, bladder normal to palpation, consistency normal, normal palpation, uterine mobility normal, uterine shape normal, No Cervical tenderness present, non-tender and no cervical motion tenderness Bimanual Exam- Adnexa, other: normal adnexae, no masses, normal and No adnexal tenderness Neuro General: patient oriented x3 Results Reviewed Results Reviewed: Name: Harika Billings Age/Sex: 26/F Attending: Christine Alvarado CNM : 1995 Submitted by: Christine Alvarado CNM Copies to: MR #: [id number] Status: DEP REF Collected: 03/02/22 Location: [facility] Received: 03/02/22 Interpretation Satisfactory for evaluation. Coccobacilli consistent with shift in vaginal emery. Mild inflammation. Negative for intraepithelial lesion or malignancy. HPV mRNA E6/E7: NOT DETECTED This assay detects E6/E7 viral messenger RNA (mRNA) from 14 high-risk HPV types (16, 18, 31, 33, 35, 39, 45, 51, 52, 56, 58, 59, 66, 68) HPV testing performed by [facility], [place], [place]. See reference laboratory pion of the EMR for entire report. Clinical Information LMP: Unknown Previous PAP test: 06/20/18, Abnormal Material Received ThinPrep-Cervical Electronically Signed By: VICKI Francois (ASCP) 03/08/22 1032 The Pap Test is a screening procedure with the inherent possibility of both false negative and false positive results. Results should be interpreted in the context of historic and current clinical findings. Reliability of the Pap Test is enhanced by performing the test on a regular repetitive basis. Patient: Harika Billings Age/Sex: 26/F MR#: [id number] Page 1 of 1 Assessment & Plan Assessment & Plan (1) Cervical cancer screening: Comment: hx of abnormal-ascus 2019 w neg hpv. 03/02/22 pap= neg w neg HPV, ( coccobacilli shift) Code(s): Z12.4 - Encounter for screening for malignant neoplasm of cervix (2) Well woman exam with routine gynecological exam: Code(s): Z01.419 - Encounter for gynecological examination (general) (routine) without abnormal findings (3) Screen for sexually transmitted diseases: Code(s): Z11.3 - Encounter for screening for infections with a predominantly sexual mode of transmission (4) Obesity (BMI 35.0-39.9 without comorbidity): Code(s): E66.9 - Obesity, unspecified Plan -----Discussed in this visit the following: healthy balanced diet, regular and consistent exercise, getting recommended health screens, doing the best she can for her particular health concerns, kegel exercises, pap smear screening and followup recommendations, mammography screening and SBE, normal changes in cycles in her life stage--- . Reviewed ask cap guidelines she would not be due for a Pap this year for her particular history of ASCUS with negative HPV in 2019 followed by negative Pap last year routine screening is recommended so 3 years from 2021. Testing done for gonorrhea chlamydia trichomoniasis Gardnerella and Allison and testing ordered for H IV hep B hep C and syphilis and she can go to the lab when she wishes. Discussed the challenges of obesity as a single mom caring for 4 children and working a low paying way each and access to food and challenges of squeezing in exercise a midst all the travel and childcare. Reviewed some basic nutrition guidelines. She will probably discuss this with her primary as well. Discussed in general terms the challenges of obesity and challenges for her health and efforts she is engaging in to manage this including dietary changes water intake attention to sleep inclusion of a regular exercise have it and dealing with the may need stressors of life that can contribute to obesity in general. Encouraged her to continue in all have her best efforts Orders: Orders Bacterial Vaginosis Panel Today Z11.3 - Encounter for screening for infections with a predominantly sexual mode of transmission Hepatitis B Surface Antigen Today E66.9 - Obesity, unspecified, Z01.419 - Encounter for gynecological examination (general) (routine) without abnormal findings, Z11.3 - Encounter for screening for infections with a predominantly sexual mode of transmission, Z12.4 - Encounter for screening for malignant neoplasm of cervix HIV Ab/Ag Today E66.9 - Obesity, unspecified, Z01.419 - Encounter for gynecological examination (general) (routine) without abnormal findings, Z11.3 - Encounter for screening for infections with a predominantly sexual mode of transmission, Z12.4 - Encounter for screening for malignant neoplasm of cervix Syphilis Screen Today E66.9 - Obesity, unspecified, Z01.419 - Encounter for gynecological examination (general) (routine) without abnormal findings, Z11.3 - Encounter for screening for infections with a predominantly sexual mode of transmission, Z12.4 - Encounter for screening for malignant neoplasm of cervix CT NG by PCR Today Z11.3 - Encounter for screening for infections with a predominantly sexual mode of transmission Hepatitis C Antibody Today E66.9 - Obesity, unspecified, Z01.419 - Encounter for gynecological examination (general) (routine) without abnormal findings, Z11.3 - Encounter for screening for infections with a predominantly sexual mode of transmission, Z12.4 - Encounter for screening for malignant neoplasm of cervix Coding Level of Care Code Est Pt Prev Care 18-39y(93446) Diagnoses Cervical cancer screening Z12.4 Well woman exam with routine gynecological exam Z01.419 Screen for sexually transmitted diseases Z11.3 Obesity (BMI 35.0-39.9 without comorbidity) E66.9
== END 2023-05-12 18:38 ==
LOC: HO.HWS 14:56
PROVIDERS: Visit Provider Advanced Practice Midwife
DX: Z12.4 Encounter for screening for malignant neoplasm of cervix (principal); Z01.419 Encounter for gynecological examination (general) (routine) without abnormal findings; Z11.3 Encounter for screening for infections with a predominantly sexual mode of transmission; E66.9 Obesity, unspecified
CPT/HCPCS: 99395

== ENCOUNTER 2023-05-12 14:56 | Outpatient (REF) | payer MEDICAID, SELFPAY ==
[2023-05-17 12:41] LABS: CT PCR DETECTED (Not Detect.); NG PCR NOT DETECTED (Not Detect.)
== END 2023-05-12 14:57 | disposition home or self-care (01) ==
LOC: HO.LNP 14:56
PROVIDERS: Visit Provider Advanced Practice Midwife
DX: Z01.419 Encounter for gynecological examination (general) (routine) without abnormal findings (principal); Z11.3 Encounter for screening for infections with a predominantly sexual mode of transmission; E66.9 Obesity, unspecified; Z68.38 Body mass index [BMI] 38.0-38.9, adult
CPT/HCPCS: 0353U; 99395

== ENCOUNTER 2023-05-16 14:52 | Outpatient (REF) | payer MEDICAID, SELFPAY ==
[2023-05-17 04:34] LABS: Syphilis Screen Nonreactive (Nonreactive)
[2023-05-17 04:53] LABS: HBsAGNum1 0.24 S/CO (0.00-0.99); HIV AB/AG Nonreactive (Nonreactive); HIV Num 1 0.05 S/CO (0.00-0.99); Hepatitis B Surface Antigen Negative (Negative); ~HepC Num1 0.16 S/CO (0.00-0.79); ~Hepatitis C Antibody Nonreactive (Nonreactive)
== END 2023-05-16 14:53 | disposition home or self-care (01) ==
LOC: HO.HHCL 14:52
PROVIDERS: Visit Provider Advanced Practice Midwife
DX: Z01.419 Encounter for gynecological examination (general) (routine) without abnormal findings (principal); E66.9 Obesity, unspecified; Z11.3 Encounter for screening for infections with a predominantly sexual mode of transmission
CPT/HCPCS: 36415; 86780; 86803; 87340; 87389

== ENCOUNTER 2023-05-18 13:34 | Outpatient (AMB) | payer MEDICAID, SELFPAY ==
--- NOTE | 2023-05-18 13:34 | MHC.OFFVIS ---
Intake Intake Visit Reasons: STD Results Wire Bender Hand Required: No Information Interpreted: clinical only Allergies No Known Allergies [No Known Allergies*] Allergy (Verified 05/18/23 13:34) seasonal Allergy (Unknown, Uncoded 05/12/23 15:00) Itchy Eyes Medication List - Last Reconciled 05/18/23 by Christine Alvarado CNM acetaminophen (Tylenol Extra Strength) 1,000 mg (2 x 500 mg) PO Q6H PRN [id number]-[id number]-[id number] 250-250-65 mg (Excedrin Migraine) 2 tabs PO Q6H PRN doxycycline hyclate 100 mg PO BID ibuprofen 600 mg PO Q6H PRN Is last menstrual period known: Yes Last menstrual period: 04/28/23 HPI STD Results HPI Details Received a message that this patient wanted to speak to me about her test results the patient had been in to the office in the [facility] site last week and had testing for STIs done which showed positive chlamydia which was resulted yesterday prescription was sent for her and the RN call the patient and the patient called back today wanting to speak to me. 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 Reproductive History Menstrual Age of Menarche: 7 Date of last menstrual period: 04/28/23 control method: none Total pregnancies: 4 Full term: 3 Results Reviewed Results Reviewed: Name: Harika Dunn Age/Sex: 27/F : 1995 Unit#: [id number] Attend Dr: Christine Alvarado CNM Re05/12/23 Status: DEP REF Location: [facility] Disch: SPEC : [id number] YVAN: 05/12/23-UNK STATUS: COMP REQ : [id number] RECD: 05/17/[address] [facility] [address]: JennyChristine JUANLeonie COMP: 05/17/232 ENTERED: 05/17/[address] [facility] [address]: [facility] ORDERED: CT NG by PCR QUERIES: CT NG Source: Vaginal Test Result Flag Reference Site CT PCR DETECTED A Not Detect. Detected results may be observed after successful antibiotic treatment due to target nucleic acids from residual non-viable chlamydia. As with many diagnostic tests, results from the Xpert CT/NG assay should be interpreted in conjunction with other laboratory and clinical data available to the clinician. Xpert CT/NG performance has not been evaluated in patients less than 14 years of age. The assay should not be used for the evaluation of suspected sexual abuse or for other medico-legal indications. Additional testing is recommended in any circumstance when false positive or false negative results could lead to adverse medical, social or psychological consequences. These results must be reported by the ordering clinician or clinical facility to the [facility] as required by state law. NG PCR NOT DETECTED Not Detect. A not detected test result does not exclude the possibility of infection because test results can be affected by improper specimen collection, concurrent antibiotic therapy, or the number of organisms in the specimen which may be below the sensitivity of the test. As with many diagnostic tests, results from the Xpert CT/NG assay should be interpreted in conjunction with other laboratory and clinical data available to the clinician. Xpert CT/NG performance has not been evaluated in patients less than 14 years of age. The assay should not be used for the evaluation of suspected sexual abuse or for other medico-legal indications. Additional testing is recommended in any circumstance when false positive or false negative results could lead to adverse medical, social or psychological consequences. Assessment & Plan Assessment & Plan (1) Chlamydia infection: Comment: From testing done 05/12/2023 patient and partner both need treatment, then she needs a test of cure. Code(s): A74.9 - Chlamydial infection, unspecified Plan Tele visit done with patient by phone. The patient apparently did not fully understand that there was an option for partner treatment. She said that she spoke with him about the infection and because I was in the [facility] she thought that I could get her partner an appointment to be seen and treated. I explained that I do not technically work for the [facility] and there was some confusion about that. The patient also thought that she had spoken with me yesterday but she had spoken with 1 of the RNs. I explained the options for the patient to be seen at the [facility] at the [facility] but that she would need to call and arrange that herself or she could speak with our nurses and they can arrange partner expedited treatment message being sent to the nurses to arrange this right now. I also explained that I recommend that she and her partner abstain from unprotected intercourse for as long as possible 2-3 weeks would be good and to use condoms if they can not wait to prevent giving the infection back and forth before it is completely eradicated. She will need a test of cure in a few weeks as well. Coding Level of Care Code Tele Est Pt Level 3 (94499) Diagnoses Chlamydia infection A74.9 Time Spent (min) 24 Comment 2 cr/15 speaking with patient/7 charting
== END 2023-05-18 14:30 | disposition home or self-care (01) ==
LOC: HO.HWSM 13:34
PROVIDERS: Visit Provider Advanced Practice Midwife
DX: A74.9 Chlamydial infection, unspecified (principal)
CPT/HCPCS: 99213

== ENCOUNTER → 2023-05-18 13:34 | Outpatient (BNVA) | payer MEDICAID, SELFPAY | PROVIDERS: Visit Provider Advanced Practice Midwife ==

== ENCOUNTER 2023-10-10 13:47 | Outpatient (REF) | payer MEDICAID, SELFPAY ==
[2023-10-11 04:35] LABS: CT PCR NOT DETECTED (Not Detect.); NG PCR NOT DETECTED (Not Detect.)
[2023-10-11 11:24] LABS: Bacterial Vaginosis PCR POSITIVE (Negative); Candida Group PCR NOT DETECTED (Not Detect); Candida glab krusei PCR NOT DETECTED (Not Detect); Trichomonas vaginalis PCR NOT DETECTED (Not Detect)
== END 2023-10-10 13:48 | disposition home or self-care (01) ==
LOC: HO.LNP 13:47
PROVIDERS: Visit Provider Advanced Practice Midwife
DX: Z01.419 Encounter for gynecological examination (general) (routine) without abnormal findings (principal); Z11.51 Encounter for screening for human papillomavirus (HPV)
CPT/HCPCS: 0352U; 0353U; 99395

== ENCOUNTER 2023-10-10 13:47 | Outpatient (AMB) | payer MEDICAID, SELFPAY ==
--- NOTE | 2023-10-10 13:53 | MHC.OFFVIS ---
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 She was seen in May and be treated for chlamydia she and her partner both been treated now. She has no current worries about STIs she had gotten blood work which was all negative so does not feel she needs to repeat that her last Pap smear was in 2021 and it was negative with negative HPV so her next Pap will be next year. She had her tubes tied and she is 23 years old after the of her 3rd child. 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 Female Reproductive History Menstrual Age of Menarche: 7 Date of last menstrual period: 09/11/23 control method: permanent sterilization Total pregnancies: 4 Full term: 3 Number of Living Children: 3 Ab induced: 1 Date of last pap smear: 05/12/23 Physical Exam Vital Signs: BMI result Body Mass Index 38.8 Const General: healthy appearing, comfortable, no acute distress, well developed and alert Nutritional Appearance: average body habitus Orientation/consciousness: patient oriented x3 Limitations: no limitations HEENT Head: Yes normocephalic Neck Neck: Yes normal visual inspection Chest Chest palpation & inspection: normal inspection of the chest Breast/axilla inspection: normal inspection of the breasts and normal inspection of the axillae Breast/axilla palpation: normal palpation of the breasts and normal palpation of the axillae Resp Effort & Inspection: normal respiratory effort GI Inspection: Yes normal to inspection, No Abdominal wall edema and No distended Palpation (GI): Soft to palpation and nontender General: Yes bladder normal to palpation External Female Exam: normal external appearance and normal appearance of the urethra Speculum Exam - Vagina: normal appearance of the vagina, normal palpation and normal vaginal discharge Speculum Exam - Cervix: normal appearance of the cervix, normal palpation and nontender Bimanual exam- vagina & uterus: normal bimanual exam, normal palpation, uterine size normal, bladder normal to palpation, consistency normal, normal palpation, uterine mobility normal, uterine shape normal, No Cervical tenderness present, non-tender and no cervical motion tenderness Bimanual Exam- Adnexa, other: normal adnexae, no masses, normal and No adnexal tenderness Neuro General: patient oriented x3 Results Reviewed Results Reviewed: Name: Harika Billings Age/Sex: 26/F Attending: Christine Alvarado CNM : 1995 Submitted by: Christine Alvarado CNM Copies to: MR #: [id number] Status: DEP REF Collected: 03/02/22 [facility] Received: 03/02/22 Interpretation Satisfactory for evaluation. Coccobacilli consistent with shift in vaginal emery. Mild inflammation. Negative for intraepithelial lesion or malignancy. HPV mRNA E6/E7: NOT DETECTED This assay detects E6/E7 viral messenger RNA (mRNA) from 14 high-risk HPV types (16, 18, 31, 33, 35, 39, 45, 51, 52, 56, 58, 59, 66, 68) HPV testing performed by [employer], Name: Harika Dunn Age/Sex: 27/F : 1995 Unit#: [id number] Attend Dr: Christine Alvarado CNM Re05/12/23 Status: DEP REF [facility] Disch: SPEC : [id number] YVAN: 05/12/23-UNK STATUS: COMP REQ : [id number] RECD: 05/17/2356 [facility] DR: hCristine Alvarado CNM COMP: 05/17/232 ENTERED: 05/17/[address]: [facility] ORDERED: CT NG by PCR QUERIES: CT NG Source: Vaginal Test Result Flag Reference CT PCR DETECTED A Not Detect. Detected results may be observed after successful antibiotic treatment due to target nucleic acids from residual non-viable chlamydia. As with many diagnostic tests, results from the Xpert CT/NG assay should be interpreted in conjunction with other laboratory and clinical data available to the clinician. Xpert CT/NG performance has not been evaluated in patients less than 14 years of age. The assay should not be used for the evaluation of suspected sexual abuse or for other medico-legal indications. Additional testing is recommended in any circumstance when false positive or false negative results could lead to adverse medical, social or psychological consequences. These results must be reported by the ordering clinician or clinical facility to the [facility] as required by state law. NG PCR NOT DETECTED Not Detect. A not detected test result does not exclude the possibility of infection because test results can be affected by improper specimen collection, concurrent antibiotic therapy, or the number of organisms in the specimen which may be below the sensitivity of the test. As with many diagnostic tests, results from the Xpert CT/NG assay should be interpreted in conjunction with other laboratory and clinical data available to the clinician. Xpert CT/NG performance has not been evaluated in patients less than 14 years of age. The assay should not be used for the evaluation of suspected sexual abuse or for other medico-legal indications. Additional testing is recommended in any circumstance when false positive or false negative results could lead to adverse medical, social or psychological consequences. Assessment & Plan Assessment & Plan (1) Screen for sexually transmitted diseases: Code(s): Z11.3 - Encounter for screening for infections with a predominantly sexual mode of transmission Category: Medical (2) Well woman exam with routine gynecological exam: Code(s): Z01.419 - Encounter for gynecological examination (general) (routine) without abnormal findings Category: Medical (3) Chlamydia infection: Comment: From testing done 05/12/2023 patient and partner both need treatment, then she needs a test of cure. Code(s): A74.9 - Chlamydial infection, unspecified Category: Medical (4) Obesity (BMI 35.0-39.9 without comorbidity): Code(s): E66.9 - Obesity, unspecified Category: Medical (5) Cervical cancer screening: Comment: hx of abnormal-ascus 2019 w neg hpv. 03/02/22 pap= neg w neg HPV, ( coccobacilli shift) Code(s): Z12.4 - Encounter for screening for malignant neoplasm of cervix Category: Medical Plan -----Discussed in this visit the following: healthy balanced diet, regular and consistent exercise, getting recommended health screens, doing the best she can for her particular health concerns, kegel exercises, pap smear screening and followup recommendations, mammography screening and SBE, normal changes in cycles in her life stage--- . Discussed that we are screening today/doing the test of cure for the chlamydia. Testing also done for gonorrhea trichomoniasis Gardnerella and Allison she has no concerns about the other blood tests in declined those. Discussed that it is good to keep track of her periods even though she does not have to worry about anymore since she had her tubes tied. 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 She will be due for her Pap smear next year. Orders: Orders Bacterial Vaginosis Panel Today Z01.419 - Encounter for gynecological examination (general) (routine) without abnormal findings, Z11.3 - Encounter for screening for infections with a predominantly sexual mode of transmission CT NG by PCR Today Z01.419 - Encounter for gynecological examination (general) (routine) without abnormal findings, Z11.3 - Encounter for screening for infections with a predominantly sexual mode of transmission Coding Level of Care Code Est Pt Prev Care 18-39y([id number]) Diagnoses Screen for sexually transmitted diseases Z11.3 Well woman exam with routine gynecological exam Z01.419 Chlamydia infection A74.9 Obesity (BMI 35.0-39.9 without comorbidity) E66.9 Cervical cancer screening Z12.4
[2023-10-10 13:56] VITALS: BMI 38.8
== END 2023-10-10 14:38 | disposition home or self-care (01) ==
PROVIDERS: Visit Provider Advanced Practice Midwife
DX: Z11.3 Encounter for screening for infections with a predominantly sexual mode of transmission (principal); Z01.419 Encounter for gynecological examination (general) (routine) without abnormal findings; A74.9 Chlamydial infection, unspecified; E66.9 Obesity, unspecified; Z12.4 Encounter for screening for malignant neoplasm of cervix
CPT/HCPCS: 99395

== ENCOUNTER 2023-12-02 20:54 | Emergency (ER) | payer MEDICAID, SELFPAY ==
--- NOTE | 2023-12-02 20:58 | ED.GENADULT ---
HPI - General Adult General Chief complaint: Headache Stated complaint: headache/pressure Time Seen by Provider: 12/02/23 22:08 Source: patient Mode of arrival: ambulatory Limitations: no limitations History of Present Illness ED Provider: ANGELINE TIJERINA PA-C HPI narrative: 28 year old female with pmhx significant for mood disorder, depression, anxiety, and migraine headaches presents to the ED today for evaluation of intermitted headache x3 days. Endorses pressure sensation to the top of her head which feels like her typical migrane however it is not resolving. Admits to associated intermittent blurred vision. Denies photophobia. Endorses increased life stressors recently. Reports taking propranolol daily and excedrin without relief. Last dose of excedrin was at 1300 today. Denies fever/ chills, jaw claudication, scalp tenderness, nausea or vomiting, chest pain or shortness of breath. Related Data Home Medications ?Medication ?Instructions ?Recorded ?Confirmed [id number] 250 2 tab PO Q6H PRN 05/12/23 05/18/23 mg-250 mg-65 mg tablet (Excedrin Migraine) Previous Rx's ?Medication ?Instructions ?Recorded acetaminophen 500 mg tablet 1,000 mg (2 x 500 mg) PO Q6H PRN 04/24/22 (Tylenol Extra Strength) fever or pain #20 tabs ibuprofen 600 mg tablet 600 mg PO Q6H PRN pain #30 tabs 04/24/22 doxycycline hyclate 100 mg tablet 100 mg PO BID #14 tabs 05/17/23 Allergies Allergy/AdvReac Type Severity Reaction Status Date / Time No Known Allergies Allergy Verified 12/02/23 21:00 [No Known Allergies*] seasonal Allergy Unknown Itchy Eyes Uncoded 12/02/23 21:00 Review of Systems Review of Systems: Constitutional: No fever, chills, fatigue, night sweats, weight changes ENT/Mouth: No ear pain, hearing loss, nasal congestion, sinus pain, rhinorrhea, sore throat Eyes: No eye pain, swelling, redness, vision changes, discharge, photophobia Cardio: No chest pain, palpitations, SHAH, orthopnea, peripheral edema Pulm: No SOB, cough, sputum, wheezing, dyspnea, hemoptysis GI: No nausea, vomiting, hematemesis, abdominal pain, diarrhea, constipation, hematochezia, melena : No irregular bleeding, dysuria, frequency, urgency, hesitancy, hematuria, flank pain, urinary flow changes, urinary incontinence or retention MSK: No back pain, neck pain, joint pain, myalgias Skin: No lesions, rashes Neuro: No weakness, numbness, paresthesias, LOC, dizziness, +headache Psych: No anxiety/panic, depression, SI/HI, AH/VH All other systems reviewed and are negative. [facility] Past Medical History Attestation statement: The following information was validated with the patient. 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 Const General: cooperative, healthy appearing, comfortable and no acute distress Orientation/consciousness: patient oriented x3 Limitations: no limitations [facility] Head: Yes normal to inspection, Yes No palpable skull fracture present, Yes normocephalic, Yes atraumatic, No scalp tenderness and No Temporal artery tenderness present Ears: hearing grossly normal bilaterally, external ears normal, TM's normal bilaterally, EAC's normal, mastoids normal and no periauricular adenopathy Face and sinus: Yes normal facial exam and Yes sinuses nontender Mouth: Normal oral and palatal mucosa present and moist mucous membranes Eyes General: appearance normal, both eyes and all related structures Conjunctivae: conjunctivae normal Sclerae: sclerae normal Pupils: Equal, round and reactive pupils present Direct Ophthalmoscopy: normal light reflex, no photophobia, no papilledema and fundi normal bilaterally Neck Neck: Yes normal visual inspection, Yes full ROM, Yes no lymphadenopathy and Yes no meningeal signs Resp Effort & Inspection: normal respiratory effort and able to speak in complete sentences Auscultation: clear to auscultation bilaterally Cardio Rate: regular rate Rhythm: regular rhythm Skin General skin exam: no rashes or lesions noted Neuro General: patient oriented x3, gait normal, tone normal, no meningeal signs and no focal motor deficits Cranial nerves: Yes Equal, round and reactive pupils present Gait exam (Neuro): Normal gait present Motor exam (neuro): 5/5 motor strength present throughout and Pronator motor function not present Coordination: [id number]-gz-fmod test normal, gsbm-[id number]-[id number] test normal, Romberg test negative and Normal rapid alternating movements of the distal upper extremity present (Neuro) Romberg Test: Negative Pupils: Normal pupillary reactivity/response: bilateral Course Course Course Narrative: RME performed by Charissa Ponce PA-C. Patient is a 28 year old assigned female at presenting to the emergency department with a headache. Patient states she is having a lot of head pressure. Patient states that she has felt this before when she was young. Patient denies any formal history of migraines. Detailed physical exam and review of systems are deferred to the psychology clinician. Swabs ordered. Patient placed back in the waiting room pending room availability and results. Reevaluation(s) Reevaluation #1: [id number]-- patient has tested negative for COVID, flu, RSV and strep throat. CT head pending. Migraine cocktail ordered. Will re-evaluate. 2300-- RN informed me that patient did not wish to wait for medications/ ct imaging and decided to leave the ED without further work up or intervention. Medical Decision Making Medical Decision Making MDM Narrative: 28 year old female with pmhx significant for mood disorder, depression, anxiety, and migraine headaches presents to the ED today for evaluation of intermitted headache x3 days. Patient hypertensive, vitals otherwise WNL. Afebrile. She is nontoxic appearing in no acute distress. Exam is nonfocal. Cerebellum intact. PERRLA. No photophobia noted. No scalp tenderness or palpable temporal artery. No jaw claudication. Differential diagnosis includes headache, migraine, tension headache, anemia, electrolyte disturbance, viral syndrome. Unlikely ICH, CVA/TIA/dissection, giant cell arteritis, trigeminal neuralgia, meningitis, encephalitis, TBI. Plan for viral serology, pain control, imaging and re-evaluation. Differential Diagnosis Differential Diagnoses: The differential diagnosis associated with the presentation includes As above Admission/Observation Not indicated Lab Data MDM Lab Attestation statement: I reviewed the patient's lab results. As above Labs: Lab Results 12/02/23 Range/Units 21:03 Influenza Type A (PCR) NEGATIVE (Negative) Influenza Type B (PCR) NEGATIVE (Negative) RSV RNA Qual (PCR) NEGATIVE (Negative) SARS-CoV-2 RNA (RT-PCR) NEGATIVE (Negative) S. pyogenes GrpA GLORY Negative (Negative) External Record Review External record reviewed: Inpatient record, Office record, Outpatient record, Prior outpatient labs, Prior outpatient radiology, Primary care record and Outside ED record Social Determinants Patient?s care significantly limited by Social Determinants of Health including: Other Social Determinant of Health Critical Care Time Critical Care Time Critical Care Time: No Discharge Plan Discharge Clinical Impression: Migraine Patient Disposition: Left W/O Completing Treatment Prescriptions: No Action doxycycline hyclate 100 mg tablet 100 mg PO BID Qty: 14 0RF acetaminophen [Tylenol Extra Strength] 500 mg tablet 1,000 mg PO Q6H PRN (Reason: fever or pain) Qty: 20 0RF ibuprofen 600 mg tablet 600 mg PO Q6H PRN (Reason: pain) Qty: 30 0RF Excedrin Migraine 250-250-65 mg tablet 2 tab PO Q6H PRN
[2023-12-02 20:59] VITALS: BP 147/102; PULSE 64; RESP 18; TEMP 36.7; O2SAT 97; BMI 38.6
[2023-12-02 21:54] LABS: Influenza A PCR NEGATIVE (Negative); Influenza B PCR NEGATIVE (Negative); Resp Syncy Virus RNA Qual PCR NEGATIVE (Negative); SARS COV2 PCR INHOUSE NEGATIVE (Negative)
[2023-12-02 22:14] LABS: IDNOW Serial# 58CA691E; Strep A Nucleic Acid Negative (Negative)
--- NOTE | 2023-12-02 23:00 | PC.NURSE ---
Addendum entered by Melodie Barreto 12/02/23 23:03: Provider Nargis arshad aware. Original Note: Pt states I am leaving, I can't wait any longer, my 3 kids are tired .
== END 2023-12-02 23:04 | disposition left against medical advice (07) ==
PROVIDERS: Physician Assistant Medical; Emergency Provider Emergency Medicine
DX: G43.909 Migraine, unspecified, not intractable, without status migrainosus (principal); Z03.818 Encounter for observation for suspected exposure to other biological agents ruled out; Z79.899 Other long term (current) drug therapy
CPT/HCPCS: 0241U; 87651; 99281; 99283

== ENCOUNTER 2023-12-09 16:51 | Emergency (ER) | payer OTHER, MEDICAID, SELFPAY ==
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
[2023-12-09 16:58] VITALS: BP 124/76; BP 147/76; PULSE 80; PULSE 85; RESP 19; TEMP 36.8; O2SAT 98; BMI 38.6
[2023-12-09] MEDS: Acetaminophen 325 MG TABLET 975 MG PO (17:15)
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
[2023-12-09 18:39] LABS: UPreg QC Valid YES; Urine Pregnancy NEGATIVE (NEGATIVE)
[2023-12-09 20:54] VITALS: BP 133/87; PULSE 65; RESP 17; TEMP 36.2; O2SAT 98
[2023-12-09 20:58] VITALS: BP 133/87; PULSE 65; RESP 17; TEMP 36.2; O2SAT 98
== END 2023-12-09 20:58 | disposition home or self-care (01) ==
PROVIDERS: Nurse Practitioner Family; Emergency Provider Emergency Medicine; PCP Student in an Organized Health Care Education/Training Program
DX: S09.90XA Unspecified injury of head, initial encounter (principal); S00.33XA Contusion of nose, initial encounter; S40.012A Contusion of left shoulder, initial encounter; S40.022A Contusion of left upper arm, initial encounter; S80.02XA Contusion of left knee, initial encounter; V43.52XA Car driver injured in collision with other type car in traffic accident, initial encounter; Y93.89 Activity, other specified; Y92.414 Local residential or business street as the place of occurrence of the external cause; Y99.9 Unspecified external cause status
CPT/HCPCS: 70450; 70486; 72125; 73030; 73562; 81025; 99283; 99284

== ENCOUNTER 2024-03-28 16:35 | Emergency (ER) | payer MEDICAID, SELFPAY ==
--- NOTE | ~2024-03-28 | XR_ITS ---
EXAMINATION: XR CHEST CLINICAL INFORMATION: Chest pain and cough. COMPARISON: Chest radiograph dated August 08, 2022. TECHNIQUE: 2 views of the chest were obtained. FINDINGS: The heart is normal in size. Both lungs are clear. No pleural effusion. No pneumothorax. No acute osseous abnormality. XR/XR chest 2V IMPRESSION: No acute cardiopulmonary disease. Electronically signed by: Todd Oden DO 03/28/2024 05:17 PM EST
[2024-03-28 16:45] VITALS: BP 145/81; PULSE 69; RESP 20; TEMP 36.9; O2SAT 99; BMI 38.3
--- NOTE | 2024-03-28 16:45 | ED.URI ---
HPI - URI/Sore Throat General Chief Complaint: Upper Respiratory Symptoms Stated Complaint: chest pain,coughing headache Time Seen by Provider: 03/28/24 18:03 Source: patient Mode of arrival: ambulatory Limitations: no limitations History of Present Illness ED Provider: Jackelyn Madrigal PA-C HPI Narrative: 28 yo female presents to the ER for evaluation of 1 month of cough, chest congestion, headaches, chest tightness. She has multiple children at home who have been sick recently. She reports 1 of her kids had pneumonia about a month and a half ago. Her symptoms started 1 month ago and have been daily since. She intermittently brings up green phlegm but her cough is mostly dry. No fevers or chills. She reports chest soreness and headaches whenever she coughs. No pain at rest. She denies history of asthma. She is a nonsmoker. She has not been taking any fjrv-arf-juasxkd medications for her symptoms. MD elicited complaint: cough Onset (ago): week(s) (4) Consistency: constant Severity: moderate Description of mucous: green Able to tolerate fluids by mouth: Yes Exacerbating factors: nothing Relieving factors: nothing Context: sick contacts Associated symptoms: denies other symptoms Treatments prior to arrival: none Related Data Home Medications ?Medication ?Instructions ?Recorded ?Confirmed qftymev-fvounnsiibguc-wqfudyre 250 2 tab PO Q6H PRN 05/12/23 05/18/23 mg-250 mg-65 mg tablet (Excedrin Migraine) Previous Rx's ?Medication ?Instructions ?Recorded acetaminophen 500 mg tablet 1,000 mg (2 x 500 mg) PO Q6H PRN 04/24/22 (Tylenol Extra Strength) fever or pain #20 tabs ibuprofen 600 mg tablet 600 mg PO Q6H PRN pain #30 tabs 04/24/22 doxycycline hyclate 100 mg tablet 100 mg PO BID #14 tabs 05/17/23 acetaminophen 325 mg tablet 650 mg (2 x 325 mg) PO Q4H PRN 12/09/23 (Tylenol) pain #30 tabs ibuprofen 600 mg tablet 600 mg PO Q6H PRN pain #30 tabs 12/09/23 albuterol sulfate 90 mcg/actuation 1 inh inhalation QID PRN shortness 03/28/24 aerosol inhaler of breath or wheezing #6.7 grams azithromycin 250 mg tablet See Rx Instructions PO .COMPLEX #6 03/28/24 (Zithromax Z-Roladno) tabs benzonatate 100 mg capsule 100 mg PO TID PRN cough #30 caps 03/28/24 prednisone 20 mg tablet 40 mg (2 x 20 mg) PO DAILY #10 tabs 03/28/24 Allergies Allergy/AdvReac Type Severity Reaction Status Date / Time No Known Allergies Allergy Verified 03/28/24 16:46 [No Known Allergies*] seasonal Allergy Unknown Itchy Eyes Uncoded 03/28/24 16:46 Review of Systems Review of Systems: Yes all other systems are reviewed and are negative [facility] Past Medical History Medical History Mood disorder Depression Anxiety No known health problems Surgical History Hx of tubal ligation Family History Family History Maternal Aunt Colon cancer Maternal Uncle Colon cancer Social History Social History Alcohol intake: never Advance Directives: No Advance Directives Information Provided: Yes Current occupational status: employed 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 Oriented X3. No acute distress. Head: normocephalic, atraumatic. Eyes: Pupils equal, round and reactive to light. ENT: Pharynx normal. No tonsillar swelling or exudate. Neck: Normal inspection. Neck supple. CVS: Normal heart rate and rhythm. Pulses normal. Respiratory: No respiratory distress. Breath sounds slightly coarse throughout with no wheezing or rhonchi. Dry cough noted Skin: Skin warm and dry. Normal skin color. Normal skin turgor. No rashes. Extremities: No lower extremity edema. No joint swelling. Negative Homans sign Neuro/psych: Oriented X 3. No motor deficit. No sensory deficit. CN II-XII intact. Normal speech and cognition. Course Course Course Narrative: This is a Rapid Medical Exam performed in triage by Tegan Castillo PA-C. Full HPI, ROS and PE to be performed by primary ED provider. 28yo F presenting to the ED c/o congestion, cough, chest pressure w/coughing x1 mos. +SOB. denies fever, travel, PE: Talking complete sentences. Dry cough appreciated. Slight End expiratory wheeze noted Plan: viral testing, CXR Medical Decision Making Medical Decision Making MDM Narrative: 28-year-old female presents to the ER for evaluation of cough and chest tightness for last 1 month. Positive sick contacts with multiple children. Chest x-ray today shows no focal infiltrate. Viral studies are negative. Her lung sounds are diminished and slightly coarse but no obvious wheezing, no respiratory distress. She has a dry cough. Will treat for acute bronchitis with steroids, Z-Rolando, antitussive agents. Will also prescribe albuterol inhaler. Encourage follow-up with her primary care doctor. She is stable for discharge home Differential Diagnosis Differential Diagnoses: The differential diagnosis associated with the presentation includes COVID, flu, RSV, pertussis, pneumonia, bronchitis, asthma Lab Data MDM Lab Attestation statement: I reviewed the patient's lab results. Labs: Lab Results 03/28/24 Range/Units 16:52 Influenza Type A (PCR) NEGATIVE (Negative) Influenza Type B (PCR) NEGATIVE (Negative) RSV RNA Qual (PCR) NEGATIVE (Negative) SARS-CoV-2 RNA (RT-PCR) NEGATIVE (Negative) Independent Interpretation I performed an independent interpretation of an: Plain X-Ray Interpretation: No focal infiltrate or effusion EKG with sinus bradycardia, sinus arrhythmia, ventricular rate 58 beats per minute, no ST segment elevations depressions, normal QTC, normal WA interval Radiology Impression Discussion of test interpretation with radiology: I have reviewed the radiologist's reading. External Record Review External record reviewed: Outpatient record, Prior outpatient labs and Prior outpatient radiology Prescription Management I considered prescription management with: Antibiotic and Other (Prednisone, bronchodilator) Critical Care Time Critical Care Time Critical Care Time: No Discharge Plan Discharge Clinical Impression: Bronchitis Patient Disposition: Home, Self-Care Instructions: Acute Bronchitis (ED) Additional Instructions: Your chest x-ray was normal You tested negative for COVID, Flu, and RSV Take the prescribed medications as directed for bronchitis Take over the counter cough syrup Rest and drink plenty of fluids Follow up with your doctor. If you develop new or worsening symptoms call 911 or come back to the ER for further evaluation. Prescriptions: New azithromycin [Zithromax Z-Rolando] 250 mg tablet See Rx Instructions .ROUTE .COMPLEX Qty: 6 0RF Rx Instructions: take 500 mg today (day 1), then 250 mg for 4 days (days 2-5) prednisone 20 mg tablet 40 mg PO DAILY Qty: 10 0RF benzonatate 100 mg capsule 100 mg PO TID PRN (Reason: cough) Qty: 30 0RF albuterol sulfate 90 mcg/actuation HFA aerosol inhaler 1 inh inhalation QID PRN (Reason: shortness of breath or wheezing) Qty: 6.7 0RF No Action doxycycline hyclate 100 mg tablet 100 mg PO BID Qty: 14 0RF acetaminophen [Tylenol Extra Strength] 500 mg tablet 1,000 mg PO Q6H PRN (Reason: fever or pain) Qty: 20 0RF ibuprofen 600 mg tablet 600 mg PO Q6H PRN (Reason: pain) Qty: 30 0RF ibuprofen 600 mg tablet 600 mg PO Q6H PRN (Reason: pain) Qty: 30 0RF acetaminophen [Tylenol] 325 mg tablet 650 mg PO Q4H PRN (Reason: pain) Qty: 30 0RF Excedrin Migraine 250-250-65 mg tablet 2 tab PO Q6H PRN Referrals: Alessia Mack MD [Primary Care Provider] - Print Language: Citizen Of [place]
--- NOTE | 2024-03-28 17:09 | PC.RT ---
Rt unable to locate pt at this time, waiting room attempted x 2. YARN BLEACHING MACHINE OPERATOR aware.
[2024-03-28 17:35] LABS: Influenza A PCR NEGATIVE (Negative); Influenza B PCR NEGATIVE (Negative); Resp Syncy Virus RNA Qual PCR NEGATIVE (Negative); SARS COV2 PCR INHOUSE NEGATIVE (Negative)
[2024-03-28 18:47] VITALS: BP 131/91; PULSE 76; RESP 18; TEMP 36.6; O2SAT 98
[2024-03-28 19:07] VITALS: BP 131/91; PULSE 76; RESP 18; TEMP 36.6; O2SAT 98
== END 2024-03-28 19:08 | disposition home or self-care (01) ==
PROVIDERS: Physician Assistant; Emergency Provider Emergency Medicine; PCP Student in an Organized Health Care Education/Training Program
DX: J40 Bronchitis, not specified as acute or chronic (principal); R05.9 Cough, unspecified; R07.89 Other chest pain; Z03.818 Encounter for observation for suspected exposure to other biological agents ruled out
CPT/HCPCS: 0241U; 71046; 99283

== ENCOUNTER 2024-04-26 10:45 | Emergency (ER) | payer MEDICAID, SELFPAY ==
--- NOTE | ~2024-04-26 | XR_ITS ---
EXAMINATION: XR CHEST CLINICAL INFORMATION: pain COMPARISON: 03/28/2024. 08/08/2022. TECHNIQUE: 2 views of the chest were obtained. FINDINGS: The cardiac, hilar, and mediastinal contours are normal. The lungs are clear bilaterally. There is no pneumothorax or pleural effusion. There is no focal osseous or soft tissue abnormality. XR/XR chest 2V IMPRESSION: Normal chest. Electronically signed by: Dalton Kirby MD 04/26/2024 01:26 PM CARL[facility]
--- NOTE | 2024-04-26 11:09 | ECG_ITS ---
Test Reason : chest pain Blood Pressure : / mmHG Vent. Rate : 059 BPM Atrial Rate : 059 BPM P-R Int : 166 ms QRS Dur : 098 ms QT Int : 408 ms P-R-T Axes : 009 -08 024 degrees QTc Int : 403 ms Sinus bradycardia with sinus arrhythmia Minimal voltage criteria for LVH, may be normal variant ( R in aVL ) Borderline ECG When compared with ECG of 28-MAR-2024 16:42, Questionable change in QRS axis Referred By: Alcon Torres Electronically Signed By:SALVADOR BERNAL MD
--- NOTE | 2024-04-26 11:22 | ED.GENADULT ---
HPI - General Adult General Stated complaint: CP, back pain, headaches Related Data Home Medications ?Medication ?Instructions ?Recorded ?Confirmed wdynonx-xjkzkrcupthdi-asbqldnj 250 2 tab PO Q6H PRN 05/12/23 05/18/23 mg-250 mg-65 mg tablet (Excedrin Migraine) Previous Rx's ?Medication ?Instructions ?Recorded acetaminophen 500 mg tablet 1,000 mg (2 x 500 mg) PO Q6H PRN 04/24/22 (Tylenol Extra Strength) fever or pain #20 tabs ibuprofen 600 mg tablet 600 mg PO Q6H PRN pain #30 tabs 04/24/22 doxycycline hyclate 100 mg tablet 100 mg PO BID #14 tabs 05/17/23 acetaminophen 325 mg tablet 650 mg (2 x 325 mg) PO Q4H PRN 12/09/23 (Tylenol) pain #30 tabs ibuprofen 600 mg tablet 600 mg PO Q6H PRN pain #30 tabs 12/09/23 albuterol sulfate 90 mcg/actuation 1 inh inhalation QID PRN shortness 03/28/24 aerosol inhaler of breath or wheezing #6.7 grams azithromycin 250 mg tablet See Rx Instructions PO .COMPLEX #6 03/28/24 (Zithromax Z-Rolando) tabs benzonatate 100 mg capsule 100 mg PO TID PRN cough #30 caps 03/28/24 prednisone 20 mg tablet 40 mg (2 x 20 mg) PO DAILY #10 tabs 03/28/24 Allergies Allergy/AdvReac Type Severity Reaction Status Date / Time No Known Allergies Allergy Verified 04/26/24 11:24 [No Known Allergies*] seasonal Allergy Unknown Itchy Eyes Uncoded 04/26/24 11:24 [facility] Past Medical History Medical History Mood disorder Depression Anxiety No known health problems Surgical History Hx of tubal ligation Family History Family History Maternal Aunt Colon cancer Maternal Uncle Colon cancer Social History Social History Alcohol intake: never Current occupational status: employed 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 She reports that her symptoms started 2 days ago. Denies any coughing. EKG was already performed Discharge Plan Discharge Prescriptions: No Action doxycycline hyclate 100 mg tablet 100 mg PO BID Qty: 14 0RF acetaminophen [Tylenol Extra Strength] 500 mg tablet 1,000 mg PO Q6H PRN (Reason: fever or pain) Qty: 20 0RF ibuprofen 600 mg tablet 600 mg PO Q6H PRN (Reason: pain) Qty: 30 0RF ibuprofen 600 mg tablet 600 mg PO Q6H PRN (Reason: pain) Qty: 30 0RF acetaminophen [Tylenol] 325 mg tablet 650 mg PO Q4H PRN (Reason: pain) Qty: 30 0RF azithromycin [Zithromax Z-Rolando] 250 mg tablet See Rx Instructions .ROUTE .COMPLEX Qty: 6 0RF Rx Instructions: take 500 mg today (day 1), then 250 mg for 4 days (days 2-5) prednisone 20 mg tablet 40 mg PO DAILY Qty: 10 0RF benzonatate 100 mg capsule 100 mg PO TID PRN (Reason: cough) Qty: 30 0RF albuterol sulfate 90 mcg/actuation HFA aerosol inhaler 1 inh inhalation QID PRN (Reason: shortness of breath or wheezing) Qty: 6.7 0RF Excedrin Migraine 250-250-65 mg tablet 2 tab PO Q6H PRN Print Language: Vietnamese
[2024-04-26 11:23] VITALS: BP 123/88; PULSE 69; RESP 18; TEMP 36.6; O2SAT 100; BMI 38.6
[2024-04-26 12:18] LABS: MANUAL DIFF FLAG NO
[2024-04-26 12:20] LABS: Basophils Percent Auto 0.7 % (0-2); Eosinophils Absolute Auto 0.1 X10*3/uL (0.0-0.4); Eosinophils Percent Auto 3.1 % (0-4); Hematocrit 34.3 % (37.0-47.0); Hemoglobin 11.5 g/dl (12.0-16.0); Imm Gran Abs Auto 0.01 X10*3/uL (0.00-0.03); Imm Gran Pct Auto 0.2 % (0.0-0.4); Lymphocytes Percent Auto 44.5 % (20-40); Mean Corpuscular HGB Conc 33.5 g/dl (31.0-35.0); Mean Corpuscular Hemoglobin 31.2 pg (27.0-33.0); Mean Platelet Volume 9.9 fL (9.4-12.3); Monocytes Absolute Auto 0.3 X10*3/uL (0.1-1.2); Monocytes Percent Auto 7.1 % (2-11); Neutrophils Percent Auto 44.4 % (45-73); Platelet Count 269 X10*3/uL (160-400); Red Blood Count 3.69 X10*6/uL (4.20-5.50); Red Cell Distribution Width 12.9 % (11.0-16.0); White Blood Count 4.5 X10*3/uL (4.8-10.8)
[2024-04-26 12:26] LABS: Prothrombin Time 11.8 SEC (10.9-12.4)
[2024-04-26 12:41] LABS: Alanine Aminotransferase 12 U/L (0-31); Albumin Level 3.9 g/dL (3.5-5.0); Alkaline Phosphatase 72 U/L (39-117); Anion Gap 9 (12-20); Aspartate Amino Transferase 19 U/L (5-31); Bilirubin Total 0.4 mg/dL (0.0-1.0); Blood Urea Nitrogen 8 mg/dL (9-16); Calcium 8.8 mg/dL (8.4-10.2); Carbon Dioxide 27 mmol/L (22-29); Chloride 107 mmol/L (96-108); Creatinine Clr Calc Pharmacy 137.5; Estimated Glomerular Filt Rate > 60; Glucose Random 98 mg/dL (60-115); Lipase 12 U/L (8-78); Potassium 3.5 mmol/L (3.3-5.1); Sodium 139 mmol/L (135-145); Total Protein 6.9 g/dL (6.5-8.0)
[2024-04-26 12:42] LABS: HCG Quantitative < 2 mIU/mL; Troponin-I High Sensitivity < 2.7 ng/L (<3.5-17.0)
[2024-04-26 13:03] LABS: Influenza A PCR NEGATIVE (Negative); Influenza B PCR NEGATIVE (Negative); Resp Syncy Virus RNA Qual PCR NEGATIVE (Negative); SARS COV2 PCR INHOUSE NEGATIVE (Negative)
== END 2024-04-26 16:16 | disposition left against medical advice (07) ==
PROVIDERS: Physician Assistant; Emergency Provider Student in an Organized Health Care Education/Training Program; PCP Student in an Organized Health Care Education/Training Program
DX: R07.9 Chest pain, unspecified (principal); R51.9 Headache, unspecified; M54.9 Dorsalgia, unspecified; Z53.21 Procedure and treatment not carried out due to patient leaving prior to being seen by health care provider; Z03.818 Encounter for observation for suspected exposure to other biological agents ruled out
CPT/HCPCS: 0241U; 36415; 71046; 80053; 83690; 84484; 84702; 85025; 85610; 93005; 99281; 99283

== ENCOUNTER → 2024-04-26 11:09 | Outpatient (BNV) | payer MEDICAID, SELFPAY | PROVIDERS: Emergency Provider Student in an Organized Health Care Education/Training Program; PCP Student in an Organized Health Care Education/Training Program; Visit Provider Internal Medicine Cardiovascular Disease | DX: R00.1 Bradycardia, unspecified (principal) | CPT/HCPCS: 93010 ==

== ENCOUNTER → 2024-04-26 11:23 | Outpatient (BNV) | payer MEDICAID, SELFPAY | PROVIDERS: PCP Student in an Organized Health Care Education/Training Program; Visit Provider Radiology Diagnostic Radiology | DX: R07.9 Chest pain, unspecified (principal) | CPT/HCPCS: 71046 ==

== ENCOUNTER 2024-06-26 10:00 | Outpatient (RCR) | payer MEDICAID, SELFPAY | END 2024-07-05 11:20 | disposition home or self-care (01) | LOC: HO.PT 10:00 | PROVIDERS: PCP Student in an Organized Health Care Education/Training Program; Visit Provider Nurse Practitioner Primary Care | DX: M54.9 Dorsalgia, unspecified (principal) | CPT/HCPCS: 97110; 97161 ==

== ENCOUNTER 2025-03-09 22:55 | Emergency (ER) | payer MEDICAID, SELFPAY ==
--- NOTE | ~2025-03-09 | XR_ITS ---
CLINICAL HISTORY: cough cp 2 view chest x-ray Comparison: CR/SR - XR CHEST 2 VIEWS - 04/26/24 11:46 EST Findings: No consolidation or effusion. Heart size is normal. No acute fracture. IMPRESSION: 1. No acute findings. This document has been electronically signed by: Mukul Flores MD on 03/10/2025 00:55:17
--- NOTE | 2025-03-09 22:58 | ECG_ITS ---
Test Reason : CP Blood Pressure : */* mmHG Vent. Rate : 79 BPM Atrial Rate : 79 BPM P-R Int : 162 ms QRS Dur : 84 ms QT Int : 368 ms P-R-T Axes : 42 69 36 degrees QTcB Int : 421 ms Normal sinus rhythm Normal ECG When compared with ECG of 26-Apr-2024 11:17, Questionable change in QRS axis Referred By: Generic ED Physician Electronically Signed By: HAMIDA SIERRA
[2025-03-09 23:08] VITALS: BP 142/70; PULSE 71; RESP 18; TEMP 37.2; O2SAT 97; BMI 39.6
[2025-03-10 00:26] LABS: COVID-19 Test Negative (Negative); IDNOW Serial# 08D9AD1C; IDNOW Serial# 55D5AD1C; IDNOW Serial# 58CA691E; Influenza B2 Negative (Negative); Strep A Nucleic Acid Negative (Negative)
--- OUTSIDE RECORDS SUMMARY | 2025-03-10 00:36 | XMS_ITS | Encounter Summary ---
Author Organization [employer] Address [address] [place] [address] [place] [address] Care Team Providers Care Trade Embalmer Name Role Phone Alessia Mack MD Primary Care Pro vider Reason for Visit * Reason Onset Date Comments Referral 06/04/2024 Encounter Details Date Type Department Care Team ([facility] st Contact Info) Description 06/04/2024 Telephone [facility] [address] [place] [address] Alessia Mack MD [address] [place] [address] Referral Social History Tobacco Use Types Packs/Day Years Used Date Smoking Tobacco: Former Cigarettes Smokeless Tobacco: Never Comments:Started 12 y of age and stopped until 17 years Alcohol Use Standard Drinks/Week Comments Yes 0 (1 standard drink = 0.6 oz pur e alcohol) social Depression Answer Date Recorded Patient Health Questionnaire-9 Score 9 11/21/2023 Patient Health Questionnaire-9 Score 9 11/21/2023 Last PHQ-9: Questionnaire Data Not on file 0 11/21/2023 Housing Stability Answer Date Recorded What is your housing situation today? I have lima melchor 11/21/[address] you li ve. Do you have problems with any of the following? None of the above 11/21/2023 Food Insecurity Answer Date Recorded Within the past 12 months, y ou worried that your food would run out before you got money to buy more: Never True 11/21/2023 Within the past 12 months,th e food you bought just didn't last and you didn't have enough money to get more: Never True 01/2024 Transportation Answer Date Recorded In the past 12 months, has l ack of transportation kept you from medical appts, meetings, work or from getting things needed for daily living? No 11/21/2023 Utilities Answer Date Recorded In the past 12 months, has t he electric, gas, oil or water company threatened to shut off services in your home? No 11/21/2023 Depression Answer Date Recorded Patient Health Questionnaire-2 Score 3 11/21/2023 Internet Access Answer Date Recorded Internet Access Q1 Yes 01/15/2024 Internet Access Q2 Not on file 01/15/2024 Comments Unknown Sex and Gender Information Value Date Recorded Sex Assigned at Female 03/14/2022 10:18 AM EDT Legal Sex Female 10:18 AM EDT Gender Identity Female 03/14/2022 10:18 AM EDT Sexual Orientation Straight 03/14/2022 10 :18 AM EDT documented as of this encounter Plan of Treatment Upcoming Encounters Date Type Department Care Team (Late st Contact Info) Description 04/30/2025 10:45 AM EST Office Visit [facility] [address] [place] [phone] Alessia Mack MD [address] [place] [phone] documented as of this encounter Visit Diagnoses Not on filedocumented in this encounter Additional Health Concerns Assessment Noted Time PHQ-9 Depression Total Score: 9 11/21/19 24 12:58 PM EDT documented as of this encounter Care Teams Trade Embalmer Relationship Specialty Start Date End Date Alessia Mack MD [address] [place] [phone] PCP - General Internal Medicine 10/06/22 Courtney Abreu Coal PasserE Merchant 05/24/23 documented as of this encounter
--- OUTSIDE RECORDS SUMMARY | 2025-03-10 00:36 | XMS_ITS | Encounter Summary ---
Author Organization [employer] Address [address] [facility] [address] [place] [address] Care Team Providers Care Line Controller Name Role Phone Alessia Mack MD Primary Care Pro vider Encounter Details Date Type Department Care Team ([facility] st Contact Info) Description 08/14/2023 Orders Only [facility] [address] [place], [place] [phone] Justine Gee MD [address] [place], [place] [phone] Social History Tobacco Use Types Packs/Day Years Used Date Smoking Tobacco: Former Cigarettes Smokeless Tobacco: Never Comments:Started 12 y of age and stopped until 17 years Alcohol Use Standard Drinks/Week Comments Yes 0 (1 standard drink = 0.6 oz pur e alcohol) social Depression Answer Date Recorded Patient Health Questionnaire-9 Score 10 05/22/2023 Patient Health Questionnaire-9 Score 10 05/22/2023 Last PHQ-9: Questionnaire Data Not on file 0 05/22/2023 Housing Stability Answer Date Recorded What is your housing situation today? I have lima sing 03/20/[address] you li ve. Do you have problems with any of the following? None of the above 03/20/2023 Food Insecurity Answer Date Recorded Within the past 12 months, y ou worried that your food would run out before you got money to buy more: Never True 03/20/2023 Within the past 12 months,th e food you bought just didn't last and you didn't have enough money to get more: Never True 10/2022 Transportation Answer Date Recorded In the past 12 months, has l ack of transportation kept you from medical appts, meetings, work or from getting things needed for daily living? No 03/20/2023 Utilities Answer Date Recorded In the past 12 months, has t he electric, gas, oil or water company threatened to shut off services in your home? No 03/20/2023 Depression Answer Date Recorded Patient Health Questionnaire-2 Score 3 05/22/2023 Comments Unknown Sex and Gender Information Value [...] Description 04/30/2025 10:45 AM EST Office Visit [facility] [address] [place] [phone] Alessia Mack MD [address] [place] [phone] documented as of this encounter Visit Diagnoses Not on filedocumented in this encounter Additional Health Concerns Assessment Noted Time PHQ-9 Depression Total Score: 10 024 3:08 PM EST documented as of this encounter Care Teams Line Controller Relationship Specialty Start Date End Date Alessia Mack MD [address] [place] [phone] PCP - General Internal Medicine 10/06/22 Courtney Abreu Burning Plant OperatorDirector News 05/24/23 documented as of this encounter
--- OUTSIDE RECORDS SUMMARY | 2025-03-10 00:36 | XMS_ITS | Encounter Summary ---
Author Organization [employer] Address [address] [place] [address] [address] [place] [address] Care Team Providers Care Professor Of Sport Management Name Role Phone Alessia Mack MD Primary Care Pro vider Encounter Details Date Type Department Care Team (Late st Contact Info) Description 02/16/2023 Abstract [facility] [address] [place], [place] [phone] Shelly Oliveira Social History Tobacco Use Types Packs/Day Years Used Date Smoking Tobacco: Never Smokeless Tobacco: Never Alcohol Use Standard Drinks/Week Comments Never 0 (1 standard drink = 0.6 oz pur e alcohol) Depression Answer Date Recorded Patient Health Questionnaire-2 Score 0 12/19/2022 Comments Unknown Sex and Gender Information Value [...] Description 04/30/2025 10:45 AM EST Office Visit [facility] [address] [place], [place] [phone] Alessia Mack MD [address] [place], [place] [phone] documented as of this encounter Procedures Procedure Name Priority Date/Time Associated Diagnosis Comments HM PAP/HPV Routine 03/02/2022 documented in this encounter Results * Pap Smear (03/02/2022) Pap Negative for intraephithelial lesion or malignancy Negative for intraephithelial lesion or malignancy, Other HPV Undetected us Historical Provider HEALTH MAINTENANCE Final Result documented in this encounter Visit Diagnoses Not on filedocumented in this encounter Care Teams Professor Of Sport Management Relationship Specialty Start Date End Date Alessia Mack MD [address] [place] [phone] PCP - General Internal Medicine 10/06/22 Courtney Abreu Product ScientistSeismology Technical Officer 05/24/23 documented as of this encounter
--- OUTSIDE RECORDS SUMMARY | 2025-03-10 00:37 | XMS_ITS | Clinical Summary ---
Author Organization Patient Business [facility] Address [address], [place] [address] Care Team Providers Care Money Room Teller Name Role Phone Unavailable Primary Care Provider Unavailabl e Social History Tobacco Use Types Packs/Day Years Used Date Smoking Tobacco: Never Smokeless Tobacco: Never Alcohol Use Standard Drinks/Week Comments No 0 (1 standard drink = 0.6 oz pur e alcohol) Comments Unknown Sex and Gender Information Value Date Recorded Sex Assigned at Not on file Legal Sex Female 10:55 PM EST Gender Identity Not on file Sexual Orientation Not on file Obstetrics History Plan of Treatment Health Maintenance Due Date Last Done Comments Hepatitis B Vaccines (1 of 3 - 19+ 3-dose series) 2012 Cervical Cancer Screening: P ap Smear 2014 HPV Vaccines (1 - 3-dose SCD M series) 2020 Depression Screening 05/15/2024 COVID-19 Vaccine ( - 2023-2 5 season) 2025 Influenza Vaccine (#1) 2025 DTaP,Tdap,and Td Vaccines (2 - Td or Tdap) 08/19/2027 08/18/2017 RSV Immunization Adult Patie nts (1 - 1-dose 75+ series) 2068 HIB Vaccines Aged Out No longer eligi ble based on patient's age to complete this topic Hepatitis A Vaccines Aged Out No long er eligible based on patient's age to complete this topic IPV Vaccines Aged Out No longer eligi ble based on patient's age to complete this topic MMR Vaccines Aged Out No longer eligi ble based on patient's age to complete this topic Meningococcal ACWY Vaccine Aged Out N o longer eligible based on patient's age to complete this topic Meningococcal B Vaccine Aged Out No l onger eligible based on patient's age to complete this topic Pneumococcal Vaccine: Pediat rics (0 to 5 Years) and At-Risk Patients (6 to 49 Years) Aged Out No longer eligi ble based on patient's age to complete this topic RSV Immunization Patients Un gill 20 months Aged Out No longer eligible b ased on patient's age to complete this topic Varicella Vaccines Aged Out No longer eligible based on patient's age to complete this topic
--- OUTSIDE RECORDS SUMMARY | 2025-03-10 00:37 | XMS_ITS | Clinical Summary ---
Author Organization [employer] Address [address] [place] [address] Care Team Providers Care [employer] Sc[employer] Coordinator Name Role Phone Alessia Mack MD Primary Care Pro vider Allergies No known active allergies Medications * This document contains information received from the source organization and may not represent a complete record from that organization. propranolol (Inderal) 10 MG tablet Take 1 tablet (10 mg) by mouth Once per day. 90 tablet 11/21/19 24 Active albuterol 108 (90 Base) MCG/ACT inhalerIndicat ions:Acute cough Inhale 2 puffs every 6 (six) hours if needed for wheezing. 18 g 11 03/18/20 24 025 Active Blood Pressure Monitoring (Blood Pressure Cuff) misc Use daily as prescribed 1 each 04/04/20 24 Active calcium carbonate (Tums) 500 MG chewable tablet Chew 1 tablet (500 mg) before breakfast, before lunch, and before evening meal. 30 tablet 11 04/04/20 24 025 Active acetaminophen (Tylenol) 500 MG tablet Take 2 tablets (1,000 mg) by mouth every 6 (six) hours if needed for moderate pain or fever for up to 25 doses. 50 tablet 09/11/19 25 Active lidocaine (Lidoderm) 5 % patchIndicatio ns:Acute pain of left shoulder Apply 1 patch topically Once per day. Remove & discard patch within 12 hours or as directed by MD. 30 patch 2 02/20/20 25 Active Ketotifen Fumarate 0.035 % solution Administer 1 drop into affected eye(s) if needed in the morning and at bedtime (eye redness, itching). 10 mL 3 02/20/20 25 Active azelastine (Astelin) 0.1 % nasal spray Administer 2 sprays into each nostril 2 times daily. Use in each nostril as directed 30 mL 3 02/20/20 25 Active hydrOXYzine HCl (Atarax) 10 MG tablet Take 1 tablet (10 mg) by mouth every 8 (eight) hours if needed for anxiety. 30 tablet 2 02/20/20 25 Active SUMAtriptan (Imitrex) 25 MG tablet Take 1 tablet (25 mg) by mouth 1 (one) time if needed for migraine. May repeat dose once in 2 hours if no relief. Do not exceed 2 doses in 24 hours. 9 tablet 2 02/20/20 25 Active risperiDONE (RisperDAL) 0.5 MG tablet Take 1 tablet (0.5 mg) by mouth 2 times daily. 60 tablet 2 02/20/20 25 Active topiramate (Topamax) 50 MG tablet Take 1 tablet (50 mg) by mouth Once per day. 90 tablet 02/20/20 25 Active SUMAtriptan (Imitrex) 25 MG tablet Take 1 tablet (25 mg) by mouth 1 (one) time if needed for migraine for up to 9 doses. May repeat dose once in 2 hours if no relief. Do not exceed 2 doses in 24 hours. 9 tablet 11/21/19 24 025 Discontinued(Re order (will not trigger notification to Pharmacy)) lidocaine (Lidoderm) 5 % patchIndicatio ns:Acute pain of left shoulder Apply 1 patch topically Once per day. Remove & discard patch within 12 hours or as directed by . 30 patch 1 12/14/19 24 025 Discontinued(Re order (will not trigger notification to Pharmacy)) hydrOXYzine HCl (Atarax) 10 MG tablet Take 1 tablet (10 mg) by mouth every 8 (eight) hours if needed for anxiety for up to 10 days. 30 tablet 02/07/20 24 025 Discontinued(Re order (will not trigger notification to Pharmacy)) naproxen (Naprosyn) 500 MG tabletIndicati ons:Mid back pain Take 1 tab twice daily with food for 7 days, then as needed for pain 60 tablet 05/17/19 Discontinued(Ot her) fluticasone (Flonase) 50 MCG/ACT nasal sprayIndicatio ns:Flu-like symptoms Administer 1-2 sprays into each nostril Once per day. Shake gently. Before first use, prime pump. After use, clean tip and replace cap. 48 g 3 09/11/19 25 025 Discontinued(Ot her) azelastine (Astelin) 0.1 % nasal spray Administer 2 sprays into each nostril 2 times daily. Use in each nostril as directed 30 mL 3 09/11/19 Discontinued(Re order (will not trigger notification to Pharmacy)) Ketotifen Fumarate 0.035 % solution Administer 1 drop into affected eye(s) if needed in the morning and at bedtime (eye redness, itching). 10 mL 3 09/11/19 Discontinued(Re order (will not trigger notification to Pharmacy)) risperiDONE (RisperDAL) 1 MG tablet Take 1 tablet by mouth every 6 (six) hours during the day. 04/04/20 24 Discontinued(Ot her) Active Problems Problem Noted Date Diagnosed Date Morbid obesity (CMS/HCC) 02/19/2025 Bipolar 1 disorder, depressed ([facility]) 02/20/20 25 History of chlamydia 11/21/2023 ELIZABETH (generalized anxiety disorder) 05/31/2023 Health care maintenance 05/20/2023 Migraine 05/10/2012 Resolved Problems Problem Noted Date Diagnosed Date Resolved Date Bronchitis 04/04/2024 02/19/2025 Assessment & Plan (04/04/2024 2:13 PM EST): Resolved. Advised to increase fluid intake, decrease physical activity, especially at home (does not work outside of home). Fu with PCP in 1 month. Epigastric pain 04/04/2024 02/19/2025 Assessment & Plan (04/04/2024 2:15 PM EST): Most likely related to Prednisone, she is off of it at this time. Advised regarding liquids and soft diet. Use TUMS ac meals prn pain. Bilateral low back pain without sciatica 02/29/2024 02/19/2025 Assessment & Plan (02/29/2024 3:36 PM EDT): Likely musculoskeletal. Non-focal, normal motor exam without neurological deficits. No back pain red-flags: bowel/bladder incontinence, IVDU, urinary retention, saddle anesthesia, and significant motor deficits. -Recommend ibuprofen and muscle relaxer prn. -Follows with PT. -Warm/cold therapy recommended. -Lifting precaution sand stretching reviewed. -ER precaution discussed. Left shoulder pain 12/14/2023 Concussion 12/14/2023 02/19/2025 Encounters * This document contains information received from the source organization and may not represent a complete record from that organization. Date Type Department Care Team Description 02/19/2025 9:45 AM EDT Office Visit [address] [address] Alessia Mack MD Obesity (BMI 30-39.9) (Primary Dx); Acute pain of left shoulder; Dietary counseling; Exercise counseling; Encounter for immunization; Encounter for vaccination; Morbid obesity (CMS/HCC) ([facility]); Health care maintenance; Moderate major depression (CMS/HCC) ([facility]); Other migraine without status migrainosus, not intractable; Bipolar 1 disorder, depressed (CMS/HCC) ([facility]); ELIZABETH (generalized anxiety disorder) 02/19/2025 Travel 02/18/[address] [address] Alessia Mack MD chartprep 01/16/[address] [address] Alessia Mack MD Referral 12/20/2024 1:30 PM EDT Clinical Support [address] [address] Christine Willson RN Bilateral impacted cerumen 12/20/2024 Travel 12/20/[address] [address] Bev Siddiqi, RN Appointment Request from Last 3 Months Immunizations Immunization Administration Dates Next Due DTaP 12/23/1997, 7,04/04/1994,01/13,1993 HPV, Quadrivalent 06/14/2011,09/14/2010 Hep B, Adolescent or Pediatric 08/01/1996,1993,1993 Hib (HbOC) 08/01/1996, 4,01/13/1994,09/07 IPV 12/23/1997, 4,01/13/1994,09/07 Influenza injectable quadriv alent preservative free 05/19/2023 Influenza, Split (incl. vanessa fied surface antigen) 05/10/2012 Influenza, seasonal, injecta ble, preservative free 02/19/2025 MMR 12/23/1997,06/27/1994 Meningococcal MPSV4 06/14/2011 Pfizer Covid-19 Vaccine 12+ 02/19/2025, 4 TD (adult), 2 Lf tetanus tox oid, preservative free, adsorbed 06/28/2005 Tdap 08/18/2017 Varicella 09/14/2010,03/07/2005 Family History Medical History Relation Name Comments Colon cancer Mother's Brother Uterine cancer Mother's Sister Relation Name Status Comments Mother's Brother Mother's Sister Social History Tobacco Use Types Packs/Day Years Used Date Smoking Tobacco: Former Cigarettes Smokeless Tobacco: Never Tobacco Cessation:Counseling Given: Not Answered Comments:Started 12 y of age and stopped until 17 years Alcohol Use Standard Drinks/Week Comments Yes 0 (1 standard drink = 0.6 oz pur e alcohol) social Depression Answer Date Recorded Patient Health Questionnaire-9 Score 11 03/03/2025 Patient Health Questionnaire-9 Score 11 03/03/2025 Last PHQ-9: Questionnaire Data Not on file 1 Housing Stability Answer Date Recorded What is your housing situation today? I have [place] 02/19/[address] you li ve. Do you have problems with any of the following? None of the above 02/19/2025 Food Insecurity Answer Date Recorded Within the past 12 months, y ou worried that your food would run out before you got money to buy more: Never True 02/19/2025 Within the past 12 months,th e food you bought just didn't last and you didn't have enough money to get more: Never True 12/2024 Transportation Answer Date Recorded In the past 12 months, has l ack of transportation kept you from medical appts, meetings, work or from getting things needed for daily living? No 02/19/2025 Utilities Answer Date Recorded In the past 12 months, has t he electric, gas, oil or water company threatened to shut off services in your home? No 02/19/2025 Depression Answer Date Recorded Patient Health Questionnaire-2 Score 4 03/03/2025 Internet Access Answer Date Recorded Internet Access Q1 Yes 02/19/2025 Internet Access Q2 Not on file 02/19/2025 Comments Unknown Sex and Gender Information Value Date Recorded Sex Assigned at Female 03/14/2022 10:18 AM EDT Legal Sex Female 10:18 AM EDT Gender Identity Female 03/14/2022 10:18 AM EDT Sexual Orientation Straight 03/14/2022 10 :18 AM EDT Last Filed Vital Signs Vital Sign Reading Time Taken Comments Blood Pressure 112/80 02/19/2025 10:05 AM EDT Pulse 78 02/19/2025 10:05 AM EDT Temperature 36.1 C (96.9 F) 02/19/2025 10:05 AM EDT Respiratory Rate 20 02/19/2025 10:05 AM EDT Oxygen Saturation 98% 02/19/2025 10:05 AM EDT Inhaled Oxygen Concentration - - Weight 110 kg (243 lb) 02/19/2025 10:05 AM EDT Height 165.1 cm (5' 5 ) 02/19/2025 10:05 AM EDT Body Mass Index 40.44 02/19/2025 10:05 AM EDT Plan of Treatment Upcoming Encounters Date Type Department Care Team (Late st Contact Info) Description 04/30/2025 10:45 AM EST Office Visit [facility] [address] [place] [phone] Alessia Mack MD [address] [place] [address] Health Maintenance Due Date Last Done Comments Lipid Panel 1993 Family Planning (PISQ) 2008 HPV Vaccines (3 - 3-dose series) 09/06/2011 06/14/2011, 09/14/2010 Depression Monitoring 09/01/2025 03/03/2025, 025 Alcohol/Substance Use Screening 02/19/2026 02/19/2025 Disability Screening 02/19/2026 02/19/2025 SDOH Screening 02/19/2026 02/19/2025 Tobacco Screening 02/19/2026 02/19/2025 Cervical Cancer Screening 03/02/2027 HPV/Cotest 03/02/2027 03/02/2022, 02/12, 03/02/2022 Pap Smear 03/02/2027 03/02/2022 DTaP/Tdap/Td Vaccines (7 - Td or Tdap) 08/19/2027 08/18/2017, 06/28/2005, 12/23/1997, Additional history exists Zoster Vaccines (1 of 2) 2043 RSV Patients and Patients Aged 60 years or older (1 - 1-dose 75+ series) 2068 HIB Vaccines Completed 08/01/1996, 03/16, 01/13/1994, Additional history exists Hepatitis B Vaccines Completed 08/01/1996, 01/13/1994, 1993 IPV Vaccines Completed 12/23/1997, 03/16, 01/13/1994, Additional history exists Meningococcal Vaccine Aged Out 06/14/2011 No simba alma eligible based on patient's age to complete this topic HIV Screening Completed 05/16/2023 Hepatitis C Screening Completed 05/16/2023 COVID-19 Vaccine Completed 02/19/2025, 09/2023, 05/16/2022, Additional history exists Influenza Vaccine Completed 02/19/2025, , 05/10/2012 Hepatitis A Vaccines Aged Out No long er eligible based on patient's age to complete this topic Meningococcal B Vaccine Aged Out No l onger eligible based on patient's age to complete this topic Pneumococcal Vaccine: Pediatrics (0 to 5 Years) and At-Risk Patients (6 to 49) Years Aged Out No longer eligible based on patient's age to complete this topic RSV under 20 months Aged Out No longe r eligible based on patient's age to complete this topic Rotavirus Vaccines Aged Out No longer eligible based on patient's age to complete this topic Procedures Procedure Name Priority Date/Time Associated Diagnosis Comments CA REMOVAL IMPACTED CERUMEN IRRIGATION/LVG UNILAT Routine 12/20/2024 1:35 PM EDT Bilateral impacted cerumen HEPATITIS C ANTIBODY Routine 05/16/2023 2:53 PM EST HIV 1/2 ANTIGEN/ANTIBODY, FOURTH GENERATION W/RFL Routine 05/16/2023 2:53 PM EST HM PAP/HPV Routine 03/02/2022 from Last 3 Months or Most Recently Relevant to Health Maintenance Results * CA REMOVAL IMPACTED CERUMEN IRRIGATION/LVG UNILAT (12/20/2024 1:35 PM EDT) Christine Rooney RN - 12/20/2024 1:35 PM EDT Christine Willson RN 12/20/2024 1:52 PM Ear Cerumen Removal Date/Time: 12/20/2024 1:35 PM Performed by: Christine Willson RN Authorized by: Alessia Carranza MD Consent: Consent obtained: Verbal Consent given by: Patient Risks, benefits, and alternatives were discussed: yes Risks discussed: Dizziness and incomplete removal Alternatives discussed: No treatment [place] protocol: Procedure explained and questions answered to patient or proxy's satisfaction: yes Patient identity confirmed: Verbally with patient Procedure details: Location: L ear and R ear Procedure type: irrigation Procedure outcomes: cerumen removed Post-procedure details: Inspection: Some cerumen remaining, TM intact and no bleeding Hearing quality: Improved Procedure completion: Tolerated us Alessia Carranza MD IN CLINIC/BEDSIDE ORDERABLES Final Result * Hepatitis C Ab (05/16/2023 2:53 PM EST) Hepatitis C Antibody Nonreactive Nonreactive [facility] Comment:Antibodies to HCV no t detected; does not exclude early acuteHCV infection. 05/16/2023 2:53 PM EST 05/16/2023 4:09 PM EST us Generic External Data Provider LAB BLOOD ORDERAB LES Final Result Performing Organization Address [facility] Co de Phone Number [facility] [address] [place] [address] [phone] * HIV-1/2 Antigen and Antibodies, Fourth Generation, with Reflexes (05/16/2023 2:53 PM EST) HIV AB/AG Nonreactive Nonreactive [facility] Comment:HIV-1 p24 Ag and/or HIV-1/HIV-2 Ab not detected.A test result that is nonreactive does not exclude thepossibility of exposure to or infection with HIV-1 and/orHIV-2. Nonreactive results in this assay for individualswith prior exposure to HIV-1 and/or HIV-2 may be due toantigen and antibody levels that are below the limit ofdetection of this assay.The [employer] HIV Ag/Ab Combo assay result andsupplemental assay results should be interpreted inconjunction with the patient's clinical presentation,history and other laboratory results. If the results areinconsistent with clinical evidence, additional testing issuggested to confirm the result. 05/16/2023 2:53 PM EST 05/16/2023 4:09 PM EST us Generic External Data Provider LAB BLOOD ORDERAB LES Final Result Performing Organization Address City/[facility]/ZIP Co de Phone Number [facility] [address] [place] [address] [phone] * Hm Pap Smear (03/02/2022) Pap Negative for intraephithelial lesion or malignancy Negative for intraephithelial lesion or malignancy, Other HPV Undetected us Historical Provider HEALTH MAINTENANCE Final Result from Last 3 Months or Most Recently Relevant to Health Maintenance Insurance [facility] [place] [facility] C[facility] ICO * Guarantor: Harika Dunn Account Type Relation to Patient Date of Phone Billing Address Personal/Family Self [facility] [place] * Guarantor: Harika Dunn Account Type Relation to Patient Date of Phone Billing Address Personal/Family Self [facility] [address] [facility] [place] * Guarantor: Harika Dunn Account Type Relation to Patient Date of Phone Billing Address Personal/Family Self [facility] [address] [place] Care Teams College Scouting Coordinator Relationship Specialty Start Date End Date Alessia Mack MD [address] [place] [address] PCP - General Internal Medicine 10/06/22 Courtney Abreu Cigarette StamperSecurity Rep 05/24/23
[2025-03-10 00:41] VITALS: O2SAT 98
[2025-03-10 00:42] VITALS: BP 148/85; PULSE 79; RESP 16; TEMP 36.8; O2SAT 98
--- NOTE | 2025-03-10 00:43 | PC.NURSE ---
pt sitting in stretcher, confirms SOB when moving, fatigue, dizziness x week. Cough only started 4 days ago per pt. No one sick at home. Hx of asthma, has not had asthma pump for 6 months, typically uses it every three months or so. respirations even and unlabored. mild dry cough noted. SP02 98% on room air.
--- NOTE | 2025-03-10 01:23 | ED_ITS ---
HPI - General Adult General Chief complaint: Upper Respiratory Symptoms Stated complaint: chest pain/lost voice Time Seen by Provider: 03/10/25 01:23 History of Present Illness ED Provider: Elda CHILEL narrative: The patient is a 29-year-old female who says she has not been feeling weak for several days. She says that she has had cough and a sore throat and she feels that she has lost her voice. She says that she had previously also felt short of breath although she does not feel short of breath now. She thinks she might have had a fever. She feels somewhat run down and ill. She says that she has a history of asthma but she does not feel that she has been wheezing. The patient is not on any control more other hormonal medication. Related Data Home Medications ?Medication ?Instructions ?Recorded ?Confirmed [id number] 250 2 tab PO Q6H PRN 05/18/23 mg-250 mg-65 mg tablet (Excedrin Migraine) Previous Rx's ?Medication ?Instructions ?Recorded acetaminophen 500 mg tablet 1,000 mg (2 x 500 mg) PO Q 6H PRN 04/24/22 (Tylenol Extra Strength) fever or pain #20 tabs ibuprofen 600 mg tablet 600 mg PO Q6H PRN pain #30 t abs 04/24/22 doxycycline hyclate 100 mg tablet 100 mg PO BID #14 ta bs 05/17/23 acetaminophen 325 mg tablet 650 mg (2 x 325 mg) PO Q4H PRN 12/09/23 (Tylenol) pain #30 tabs ibuprofen 600 mg tablet 600 mg PO Q6H PRN pain #30 t abs 12/09/23 albuterol sulfate 90 mcg/actuation 1 inh inhalation QI D PRN shortness 03/28/24 aerosol inhaler of breath or wheezing #6.7 g mireille azithromycin 250 mg tablet See Rx Instructions PO .COM PLEX #6 03/28/24 (Zithromax Z-Rolando) tabs benzonatate 100 mg capsule 100 mg PO TID PRN cough #30 caps 03/28/24 prednisone 20 mg tablet 40 mg (2 x 20 mg) PO DAILY # 10 tabs 03/28/24 acetaminophen 500 mg capsule 1,000 mg (2 x 500 mg) PO Q8H PRN 03/10/25 fever or pain #14 caps azithromycin 250 mg tablet 250 mg PO DAILY 4 days #4 t abs 03/10/25 ibuprofen 400 mg tablet 400 mg PO Q6H PRN pain #14 t abs 03/10/25 Allergies Allergy/AdvReac Type Severity Reaction Status Date / Time No Known Allergies (No Known Allergy Verified 03/09/25 23:09 Allergies*) seasonal Allergy Unknown Itchy Eyes Uncoded 03/09/25 23:09 Review of Systems Review of Systems: Yes all other systems are reviewed and are negative [facility] Past Medical History Medical History Mood disorder Depression Anxiety No known health problems Surgical History Hx of tubal ligation Family History Family History Maternal Aunt Colon cancer Maternal Uncle Colon cancer Social History Social History Alcohol intake: never Smoked in Last 30 Days: No Advance Directives: No Advance Directives Information Provided: No Do you have a plan to hurt others: No Plan Current occupational status: employed 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 She was awake and alert. She has a very raspy and weak voice but otherwise she did not appear acutely ill or seem short of breath or in distress. Orientation/consciousness: patient oriented x3 HENMT Other: Appearance of the face is unremarkable. Mucous membranes are moist. The posterior pharynx is unremarkable. Eyes General: appearance normal, both eyes and all related structures Neck Other: No stridor Neck: Yes normal visual inspection and Yes full ROM Resp Other: No increased work of breathing. Breath sounds are fairly clear. No araceli wheezes. No crackles. Cardio Rate: regular rate Rhythm: regular rhythm Heart sounds: S1 normal heart sound present and S2 normal heart sound present Skin Other: The skin is dry and unremarkable Neuro General: patient oriented x3, tone normal, moves all extremities, no focal motor deficits and CN's II-XI intact bilaterally Extrem Other: There is no calf swelling or tenderness. No asymmetry. No peripheral edema. Medical Decision Making Medical Decision Making [facility] Narrative: The patient is a 29-year-old woman who presents with several days of symptoms of cough, sore throat, a raspy and weak voice and a sense of shortness of breath although she says she is not short of breath at the moment. Clinically the patient sounds as though she has laryngitis. Her rapid strep is negative. Influenza and COVID are negative. She is PERC negative. I have a low suspicion for a pulmonary embolism in his case. Chest x-ray is negative making pneumonia unlikely. This may be some kind of a viral laryngitis or possibly some kind of atypical infection. She will be placed on a course of azithromycin. She should return if worse. Lab Data Labs: Lab Results 03/09/25 Range/Units 23:44 COVID-19 (TRISTEN) Negative (Negative) COVID-19 Clin Com See Note Influenza Type A (GLORY) Negative (Negative) Influenza Type B (GLORY) Negative (Negative) Influenza A & B Note See Note S. pyogenes GrpA GLORY Negative (Negative) Discharge Plan Discharge Clinical Impression: Laryngitis Patient Disposition: Home, Self-Care Additional Instructions: Please take the prescribed antibiotic, azithromycin, once a day until done. Take your next dose on Monday evening. You may use ibuprofen and acetaminophen for discomfort. Contact your regular doctor for additional advice as needed. Please return to the emergency room if you feel significantly worse. Prescriptions: New azithromycin 250 mg tablet 250 mg PO DAILY 4 Days Qty: 4 0RF Rx Instructions: start on day 2 of therapy ibuprofen 400 mg tablet 400 mg PO Q6H PRN (Reason: pain) Qty: 14 0RF acetaminophen 500 mg capsule 1,000 mg PO Q8H PRN (Reason: fever or pain) Qty: 14 0RF No Action doxycycline hyclate 100 mg tablet 100 mg PO BID Qty: 14 0RF acetaminophen [Tylenol Extra Strength] 500 mg tablet 1,000 mg PO Q6H PRN (Reason: fever or pain) Qty: 20 0RF ibuprofen 600 mg tablet 600 mg PO Q6H PRN (Reason: pain) Qty: 30 0RF ibuprofen 600 mg tablet 600 mg PO Q6H PRN (Reason: pain) Qty: 30 0RF acetaminophen [Tylenol] 325 mg tablet 650 mg PO Q4H PRN (Reason: pain) Qty: 30 0RF azithromycin [Zithromax Z-Rolando] 250 mg tablet See Rx Instructions .ROUTE .COMPLEX Qty: 6 0RF Rx Instructions: take 500 mg today (day 1), then 250 mg for 4 days (days 2-5) prednisone 20 mg tablet 40 mg PO DAILY Qty: 10 0RF benzonatate 100 mg capsule 100 mg PO TID PRN (Reason: cough) Qty: 30 0RF albuterol sulfate 90 mcg/actuation HFA aerosol inhaler 1 inh inhalation QID PRN (Reason: shortness of breath or wheezing) Qty: 6.7 0RF Excedrin Migraine 250-250-65 mg tablet 2 tab PO Q6H PRN Referrals: Alessia Mack MD [Primary Care Provider, Internal Medicine] Print Language: Czech
--- NOTE | 2025-03-10 01:40 | PC.NURSE ---
pt medicated per MAR.
[2025-03-10 04:43] VITALS: BP 126/87; PULSE 70; RESP 16; TEMP 36.8; O2SAT 98
[2025-03-10 06:16] VITALS: BP 126/87; PULSE 70; RESP 16; TEMP 36.8; O2SAT 98
== END 2025-03-10 06:17 | disposition home or self-care (01) ==
PROVIDERS: Emergency Provider Emergency Medicine; PCP Student in an Organized Health Care Education/Training Program
DX: J04.0 Acute laryngitis (principal); R05.9 Cough, unspecified; R07.9 Chest pain, unspecified; R53.1 Weakness; Z03.818 Encounter for observation for suspected exposure to other biological agents ruled out
CPT/HCPCS: 71046; 87502; 87635; 87651; 93005; 99283; 99285

== ENCOUNTER → 2025-03-09 22:58 | Outpatient (BNV) | payer MEDICAID, SELFPAY | PROVIDERS: Emergency Provider Emergency Medicine; PCP Student in an Organized Health Care Education/Training Program; Visit Provider Internal Medicine | DX: R07.9 Chest pain, unspecified (principal) | CPT/HCPCS: 93010 ==

== ENCOUNTER → 2025-03-09 23:10 | Outpatient (BNV) | payer MEDICAID, SELFPAY | PROVIDERS: PCP Student in an Organized Health Care Education/Training Program; Visit Provider Radiology Diagnostic Radiology | DX: R05.9 Cough, unspecified (principal); R07.9 Chest pain, unspecified | CPT/HCPCS: 71046 ==

== ENCOUNTER 2025-04-24 09:12 | Outpatient (REF) | payer MEDICAID, SELFPAY ==
[2025-04-25 09:41] LABS: Bacterial Vaginosis PCR NEGATIVE (Negative); Candida Group PCR NOT DETECTED (Not Detect); Candida glab krusei PCR NOT DETECTED (Not Detect); Trichomonas vaginalis PCR NOT DETECTED (Not Detect)
[2025-04-25 10:14] LABS: CT PCR NOT DETECTED (Not Detect.); NG PCR NOT DETECTED (Not Detect.)
== END 2025-04-24 09:13 | disposition home or self-care (01) ==
LOC: HO.LNP 09:12
PROVIDERS: PCP Student in an Organized Health Care Education/Training Program; Visit Provider Advanced Practice Midwife
DX: Z01.419 Encounter for gynecological examination (general) (routine) without abnormal findings (principal); E66.9 Obesity, unspecified; Z98.51 Tubal ligation status; Z68.39 Body mass index [BMI] 39.0-39.9, adult; Z79.82 Long term (current) use of aspirin; Z20.2 Contact with and (suspected) exposure to infections with a predominantly sexual mode of transmission
CPT/HCPCS: 81515; 87491; 87591; 87626; 88175

== ENCOUNTER 2025-04-24 09:12 | Outpatient (AMB) | payer MEDICAID, SELFPAY ==
--- NOTE | 2025-04-24 09:22 | MHC.OFFVIS ---
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: Burglar Alarm Superintendent Present (Brigida) Accompanied by: Self / Same As Patient Allergies No Known Allergies (No Known Allergies*) Allergy (Verified 04/24/25 09:43) seasonal Allergy (Unknown, Uncoded 03/09/25 23:09) Itchy Eyes Medication List - Last Reconciled 04/24/25 by Christine Alvarado CNM [id number] 250-250-65 mg (Excedrin Migraine) 2 tabs PO Q6H PRN risperidone mg PO topiramate 50 mg PO DAILY Is last menstrual period known: Yes Last menstrual period: 04/21/25 Post menopausal: No Patient : No HPI HPI DUMPMAN annual exam: Details: 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 She has not been sexually active in the last year and a half prior to that she was given chlamydia by her previous partner and test of cure and STI testing after that was all negative. She is interested in testing today with the exam. In her chart it says that she did have a history of abnormal in 2019 but presently she does not remember that and there is discrepant data in the HPIs in the previous visits. However there is a note of ASCUS in 2019 also noted in the chart. Given this and the last Pap being negative in 2021 we will do a Pap today just to be thorough also she do does desire testing for STIs with the exam but not blood work. She has a appointment with her primary care provider next week. She anticipate she will be getting blood tests done. She does not remember having fasting blood work done for a long time. With the premenstrual days that she cited above she also experienced feeling very tired and she does have a family history of diabetes. Of interest she tells me that she got her period when she was 6. Her daughter is now 7 years old and she has prepared her already and she is ready for it. She is endeavoring to eat healthier in the family with all of her children and they have cut out soda and a lot of sweets since snacks. She feels she has already losing a little bit of weight and she feels better. 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 Female Reproductive History Menstrual Age of Menarche: 7 Date of last menstrual period: 04/21/25 control method: permanent sterilization Total pregnancies: 4 Full term: 3 Ab induced: 1 Date of last pap smear: 03/01/22 (negative pap smear, negative hpv ) History of abnormal pap smear: Yes Physical Exam Vital Signs: Last Vital Signs BP 116/72 04/24/25 09:33 BMI result Body Mass Index 39.1 Const General: healthy appearing, comfortable, no acute distress, well developed and alert Nutritional Appearance: average body habitus Orientation/consciousness: patient oriented x3 Limitations: no limitations HEENT Head: Yes normocephalic Neck Neck: Yes normal visual inspection Chest Chest palpation & inspection: normal inspection of the chest Breast/axilla inspection: normal inspection of the breasts and normal inspection of the axillae Breast/axilla palpation: normal palpation of the breasts and normal palpation of the axillae Resp Effort & Inspection: normal respiratory effort GI Inspection: Yes normal to inspection, No Abdominal wall edema and No distended Palpation (GI): Soft to palpation and nontender Other: External exam within normal limits vagina pink and moist with end of menses evident multiparous cervix pink smooth healthy appearing very deep uterus is small anteverted mobile nontender adnexa small nontender good tone with Kegel. General: Yes bladder normal to palpation External Female Exam: normal external appearance and normal appearance of the urethra Speculum Exam - Vagina: normal appearance of the vagina, normal palpation and normal vaginal discharge Speculum Exam - Cervix: normal appearance of the cervix, normal palpation and nontender Bimanual exam- vagina & uterus: normal bimanual exam, normal palpation, uterine size normal, bladder normal to palpation, consistency normal, normal palpation, uterine mobility normal, uterine shape normal, No Cervical tenderness present, non-tender and no cervical motion tenderness Bimanual Exam- Adnexa, other: normal adnexae, no masses, normal and No adnexal tenderness Neuro General: patient oriented x3 Results Reviewed Results Reviewed: Name: Harika Billings Age/Sex: 26/F Attending: Christine Alvarado CNM : 1995 Submitted by: Christine Alvarado CNM Copies to: MR #: [id number] Status: DEP REF Collected: 03/02/22 Location: [facility] Received: 03/02/22 Interpretation Satisfactory for evaluation. Coccobacilli consistent with shift in vaginal emery. Mild inflammation. Negative for intraepithelial lesion or malignancy. HPV mRNA E6/E7: NOT DETECTED This assay detects E6/E7 viral messenger RNA (mRNA) from 14 high-risk HPV types (16, 18, 31, 33, 35, 39, 45, 51, 52, 56, 58, 59, 66, 68) HPV testing performed by [facility], [place], [place]. See reference laboratory pion of the EMR for entire report. Clinical Information LMP: Unknown Previous PAP test: 06/20/18, Abnormal Material Received ThinPrep-Cervical Electronically Signed By: VICKI Francois (ASCP) 03/08/22 1032 The Pap Test is a screening procedure with the inherent possibility of both false negative and false positive results. Results should be interpreted in the context of historic and current clinical findings. Reliability of the Pap Test is enhanced by performing the test on a regular repetitive basis. Patient: Harika Billings [facility]: 26[id number] MR#: [id number] Also reviewed past STI results 2022 and 2023, and CBC of 20 24 is within normal limits. Assessment & Plan Assessment & Plan (1) Well woman exam with routine gynecological exam: Code(s): Z01.419 - Encounter for gynecological examination (general) (routine) without abnormal findings Category: Medical (2) Cervical cancer screening: Comment: hx of abnormal-ascus 2019 w neg hpv. 03/02/22 pap= neg w neg HPV, ( coccobacilli shift) Code(s): Z12.4 - Encounter for screening for malignant neoplasm of cervix Category: Medical (3) Obesity (BMI 35.0-39.9 without comorbidity): Code(s): E66.9 - Obesity, unspecified Category: Medical (4) Screen for sexually transmitted diseases: Code(s): Z11.3 - Encounter for screening for infections with a predominantly sexual mode of transmission Category: Medical Plan -----Discussed in this visit the following: healthy balanced diet, regular and consistent exercise, getting recommended health screens, doing the best she can for her particular health concerns, kegel exercises, pap smear screening and followup recommendations, mammography screening and SBE, normal changes in cycles in her life stage--- Reviewed all of. her symptoms and her concerns about her periods and reviewed things to watch for including missed periods,, which she has no had reviewed the relationship of menses to weight and premenstrual symptoms. I wished her luck with the weight loss efforts and healthy eating and encouraged her to really work on it in these years of her life while she can. If she became sexually active she would use condoms for protection. RTC 1 year. Coding Level of Care Code Est Pt Prev Care 18-39y(86005) Diagnoses Well woman exam with routine gynecological exam Z01.419 Cervical cancer screening Z12.4 Obesity (BMI 35.0-39.9 without comorbidity) E66.9 Screen for sexually transmitted diseases Z11.3
[2025-04-24 09:33] VITALS: BP 116/72; BMI 39.1
== END 2025-04-24 11:20 | disposition home or self-care (01) ==
LOC: HO.HWSM 09:12
PROVIDERS: PCP Student in an Organized Health Care Education/Training Program; Visit Provider Advanced Practice Midwife
DX: Z01.419 Encounter for gynecological examination (general) (routine) without abnormal findings (principal); E66.9 Obesity, unspecified; Z11.3 Encounter for screening for infections with a predominantly sexual mode of transmission
CPT/HCPCS: 99395